=== PATIENT | female | born 1965 | race American Indian/Alaskan Native ===

== ENCOUNTER → 2024-11-05 | Outpatient (CLI) | payer BC ==
[2024-11-05 14:10] LABS: Basophils % (A) 0 %; Eosinophils # (A) 0.1 k/uL (0-0.7); Eosinophils % (A) 3 %; HCT 41.1 % (34.0-46.0); HGB 13.2 gm/dL (11.4-16.0); Hypochromasia Slight; Lymphocytes # (A) 1.3 k/uL (1.0-4.8); Lymphocytes % (A) 25 %; MCH 30.8 pg (25.0-35.0); MCHC 32.1 g/dL (31.0-37.0); MCV 95.8 fL (80.0-100.0); Mean Platelet Volume 11.8; Monocytes # (A) 0.3 k/uL (0-1.0); Monocytes % (A) 6 %; Neutrophils # (A) 3.3 k/uL (1.3-7.7); Neutrophils % (A) 65 %; RBC 4.29 m/uL (3.80-5.40); RDW 13.7 % (11.5-15.5); WBC 5.1 k/uL (3.8-10.6)
[2024-11-05 14:58] LABS: Large Platelets Present; Platelet Count 17 k/uL (150-450)
== END | disposition home or self-care (01) ==
LOC: LABWHC1 13:43
PROVIDERS: ATTEND Internal Medicine
DX: D69.3 Immune thrombocytopenic purpura (principal); D64.9 Anemia, unspecified; J45.909 Unspecified asthma, uncomplicated; F41.1 Generalized anxiety disorder
CPT/HCPCS: 36415; 85025

== ENCOUNTER 2025-01-19 22:12 | Inpatient (IN) | payer BC ==
--- NOTE | 2025-01-19 22:54 | ED ---
General Adult HPI - General Chief complaint: Recheck/Abnormal Lab/Rx Stated complaint: Abnormal Labs Time Seen by Provider: 01/19/25 22:24 Source: patient, RN notes reviewed, old records reviewed Mode of arrival: ambulatory Limitations: no limitations - History of Present Illness Initial comments: 59 yo female presenting for evaluation of low platelets. Patient states she had her platelets monitor over the past 2 months with hematology with history of ITP. Patient states that she had a blood draw performed earlier this week and her platelet level was 2. She has report easy bruising and rash on her abdomen and lower extremities. She does complain of a mild right-sided headache. No fall or trauma. No bleeding from the rectum. - Related Data Allergies Allergy/AdvReac Type Severity Reaction Status Date / Time amoxicillin Allergy Rash/Hives Verified 01/19/25 22:18 azithromycin [From Zithromax] Allergy Rash/Hives Verified 01/19/25 22:18 coconut Allergy Rash/Hives Verified 01/19/25 22:18 niacin Allergy Rash/Hives Verified 01/19/25 22:18 nitrofurantoin Allergy Unknown Verified 01/19/25 22:18 [From Macrobid] Penicillins Allergy Rash/Hives Verified 01/19/25 22:18 Review of Systems ROS Statement: Those systems with pertinent positive or pertinent negative responses have been documented in the HPI. ROS Other: All systems not noted in ROS Statement are negative. Past Medical History Additional Past Medical History / Comment(s): ITP, kidney stones History of Any Multi-Drug Resistant Organisms: None Reported Past Surgical History: Orthopedic Surgery Past Psychological History: Anxiety, Depression Smoking Status: Never smoker Past Alcohol Use History: None Reported Past Drug Use History: None Reported General Exam Limitations: no limitations General appearance: alert, in no apparent distress Head exam: Present: atraumatic, normocephalic Eye exam: Present: normal appearance, PERRL Respiratory exam: Present: normal lung sounds bilaterally. Absent: respiratory distress Cardiovascular Exam: Present: regular rate, normal rhythm GI/Abdominal exam: Present: soft. Absent: distended, tenderness, guarding Neurological exam: Present: alert, oriented X3, CN II-XII intact. Absent: motor sensory deficit Skin exam: Present: warm, rash, petechiae Course Vital Signs 01/19/25 22:13 Temperature 97.9 F Pulse Rate 94 Respiratory 18 Rate Blood Pressure 122/86 O2 Sat by Pulse 99 Oximetry - Reevaluation(s) Reevaluation #1: 01/20/25 00:[address] Duran, recommends Decadron 40 mg IV daily. Likely IVIG. Medical Decision Making - Medical Decision Making Was pt. sent in by a medical professional or institution (MYRTLE Sandoval, MARINE OPERATIONS COORDINATOR, urgent care, hospital, or skilled nursing...) When possible be specific @ -No Did you speak to anyone other than the patient for history (EMS, parent, family, police, friend...)? What history was obtained from this source @ -No Did you review nursing and triage notes (agree or disagree)? Why? @ -I reviewed and agree with nursing and triage notes Were old charts reviewed (outside hosp., previous admission, EMS record, old EKG, old radiological studies, urgent care reports/EKG's, skilled nursing records)? Report findings @ -No old charts were reviewed Differential Diagnosis: ITP, internal bleeding, intracranial hemorrhage, thrombocytopenia EKG interpreted by me (3pts min.). @ -As above X-rays interpreted by me (1pt min.). @ -None done CT interpreted by me (1pt min.). @ -CT brain negative for intracranial hemorrhage U/S interpreted by me (1pt. min.). @ -None done What testing was considered but not performed or refused? (CT, X-rays, U/S, labs)? Why? @ -None What meds were considered but not given or refused? Why? @ -None Did you discuss the management of the patient with other professionals (professionals i.e. MYRTLE Sandoval, MARINE OPERATIONS COORDINATOR, lab, RT, psych nurse, social professionals, employee benefits administrator, teacher, administrative hearing officer, case loader operator)? Give summary @ -Discussed with Dr. Duran who is familiar with the patient, [facility] who will admit Was smoking cessation discussed for >3mins.? @ -No Was critical care preformed (if so, how long)? @ -yes 35 min Were there social determinants of health that impacted care today? How? (Homelessness, low income, unemployed, alcoholism, drug addiction, transportation, low edu. Level, literacy, decrease access to med. care, fdc, rehab)? @ -No Was there de-escalation of care discussed even if they declined (Discuss DNR or withdrawal of care, Hospice)? DNR status @ -No What co-morbidities impacted this encounter? (DM, HTN, Smoking, COPD, CAD, Cancer, CVA, ARF, Chemo, Hep., AIDS, mental health diagnosis, sleep apnea, morbid obesity)? @ -ITP Was patient admitted / discharged? Hospital course, mention meds given and route, prescriptions, significant lab abnormalities, going to OR and other pertinent info. @ -[59 yo female presenting with low platelets history of ITP. Platelets today are 4. I discussed case with hematology recommends high-dose IV Decadron at this time. Patient will be admitted for monitoring and treatment. Undiagnosed new problem with uncertain prognosis? @ -No Drug Therapy requiring intensive monitoring for toxicity (Heparin, Nitro, Insulin, Cardizem)? @ -No Were any procedures done? @ -No Diagnosis/symptom? @ -Thrombocytopenia, ITP Acute, or Chronic, or Acute on Chronic? @ -[Acute Uncomplicated (without systemic symptoms) or Complicated (systemic symptoms)? @Complicated Side effects of treatment? @ -No Exacerbation, Progression, or Severe Exacerbation? @ -No Poses a threat to life or bodily function? How? (Chest pain, [place], [place], pneumonia, PE, COPD, DKA, ARF, appy, cholecystitis, CVA, Diverticulitis, Homicidal, Suicidal, threat to staff... and all critical care pts) @ -Yes, internal bleeding, intracranial hemorrhage - Lab Data Result diagrams: 01/19/25 22:56 01/19/25 22:56 Lab Results 01/19/25 01/19/25 01/19/25 Range/Units 22:56 22:56 22:56 WBC 6.75 (4.50-10.00) 10*3/uL RBC 4.20 (4.10-5.20) 10*6/uL Hgb 12.8 (12.0-15.0) g/dL Hct 38.2 (37.2-46.3) % MCV 91.0 (80.0-97.0) fL MCH 30.5 (27.0-32.0) pg MCHC 33.5 (32.0-37.0) g/dL Plt Count 4 L* (140-440) 10*3/uL Immature Gran % (Auto) 0.9 % Neutrophils % 63.9 % Lymphocytes % 25.6 % Monocytes % 6.8 % Eosinophils % 2.2 % Basophils % 0.6 % Immature Gran # 0.06 H (0.00-0.04) 10*3/uL Neutrophils # 4.31 (1.80-7.70) 10*3/uL Lymphocytes # 1.73 (0.90-5.00) 10*3/uL Monocytes # 0.46 (0.20-1.00) 10*3/uL Eosinophils # 0.15 (0.04-0.35) 10*3/uL Basophils # 0.04 (0.00-0.10) 10*3/uL PT 10.8 (10.0-12.5) sec INR 1.0 (<1.2) APTT 23.1 (22.0-30.0) sec Sodium 142 (137-145) mmol/L Potassium 3.6 (3.5-5.1) mmol/L Chloride 103 (98-107) mmol/L Carbon Dioxide 28 (22-30) mmol/L Anion Gap 11 mmol/L BUN 24 H (7-17) mg/dL Creatinine 0.93 (0.52-1.04) mg/dL Est GFR (CKD-EPI)AfAm 80 (>60 ml/min/1.73 sqM) Est GFR (CKD-EPI)NonAf 69 (>60 ml/min/1.73 sqM) Glucose 103 H (74-99) mg/dL Calcium 10.1 (8.4-10.2) mg/dL Total Bilirubin 0.6 (0.2-1.3) mg/dL AST 21 (14-36) U/L ALT 17 (4-34) U/L Alkaline Phosphatase 82 (38-126) U/L Total Protein 7.0 (6.3-8.2) g/dL Albumin 4.5 (3.5-5.0) g/dL Critical Care Time Critical Care Time: Yes Total Critical Care Time: 35 Disposition Clinical Impression: Thrombocythemia Disposition: ADMITTED IP TO THIS [facility] Condition: Stable Is patient prescribed a controlled substance at d/c from ED?: No Referrals: Alberta King MD [Primary Care Provider] - 1-2 days Time of Disposition: 00:22
[2025-01-19 23:21] LABS: Basophils # (A) 0.04 10*3/uL (0.00-0.10); Basophils % (A) 0.6 %; Eosinophils # (A) 0.15 10*3/uL (0.04-0.35); Eosinophils % (A) 2.2 %; HCT 38.2 % (37.2-46.3); HGB 12.8 g/dL (12.0-15.0); Lymphocytes # (A) 1.73 10*3/uL (0.90-5.00); Lymphocytes % (A) 25.6 %; MCH 30.5 pg (27.0-32.0); MCHC 33.5 g/dL (32.0-37.0); Monocytes # (A) 0.46 10*3/uL (0.20-1.00); Monocytes % (A) 6.8 %; Neutrophils # (A) 4.31 10*3/uL (1.80-7.70); Neutrophils % (A) 63.9 %; WBC 6.75 10*3/uL (4.50-10.00)
[2025-01-19 23:22] LABS: ALT 17 U/L (4-34); AST 21 U/L (14-36); African American GFR (CKD) 80 (>60 ml/min/1.73 sqM); Albumin 4.5 g/dL (3.5-5.0); Alkaline Phosphatase 82 U/L (38-126); Anion Gap 11 mmol/L; Blood Urea Nitrogen 24 mg/dL (7-17); Calcium 10.1 mg/dL (8.4-10.2); Carbon Dioxide 28 mmol/L (22-30); Chloride 103 mmol/L (98-107); Glucose 103 mg/dL (74-99); Non-African American GFR(CKD) 69 (>60 ml/min/1.73 sqM); Potassium 3.6 mmol/L (3.5-5.1); Sodium 142 mmol/L (137-145); Total Bilirubin 0.6 mg/dL (0.2-1.3)
[2025-01-19 23:24] LABS: Partial Thromboplastin Time 23.1 sec (22.0-30.0); Prothrombin Time 10.8 sec (10.0-12.5)
[2025-01-19 23:39] LABS: Platelet Count 4 10*3/uL (140-440)
[2025-01-20] MEDS: DEXAMETHASONE SOD PHOSPHATE 10 MG/ML 1 ML VIAL IV SCH
[2025-01-20] MEDS ORDERED: NALOXONE 0.4 MG/ML 1 ML VIAL IV PRN (00:15)
--- NOTE | 2025-01-20 00:30 | CT ---
EXAM: CT Head Without Intravenous Contrast CLINICAL HISTORY: ITS.REASON CT Reason: ALCANTAR, Thrombocytopenia TECHNIQUE: Axial computed tomography images of the head/brain without intravenous contrast. CTDI is 49.2 mGy and DLP is 1200.4 mGy-cm. This CT exam was performed using one or more of the following dose reduction techniques: automated exposure control, adjustment of the mA and/or kV according to patient size, and/or use of iterative reconstruction technique. COMPARISON: No relevant prior studies available. FINDINGS: No acute intracranial hemorrhage. No midline shift or mass effect. The territorial ewing-white matter differentiation is maintained throughout. The ventricles and sulci are commensurate with age. The visualized orbits appear grossly unremarkable. The calvarium is intact. The visualized paranasal sinuses and mastoid air cells are grossly clear. IMPRESSION: No acute intracranial hemorrhage, midline shift, or mass effect.
[2025-01-20] MEDS: SODIUM CHLORIDE 0.9% 1,000 ML IV SCH (00:46)
[2025-01-20] MEDS: ACETAMINOPHEN TAB 325 MG TAB PO PRN (04:16)
[2025-01-20 07:35] LABS: Basophils # (A) 0.01 10*3/uL (0.00-0.10); Basophils % (A) 0.3 %; HCT 38.2 % (37.2-46.3); HGB 12.6 g/dL (12.0-15.0); Lymphocytes % (A) 16.9 %; MCH 30.5 pg (27.0-32.0); MCV 92.5 fL (80.0-97.0); Monocytes # (A) 0.06 10*3/uL (0.20-1.00); Monocytes % (A) 1.7 %; Neutrophils # (A) 2.87 10*3/uL (1.80-7.70); Neutrophils % (A) 81.1 %; RBC 4.13 10*6/uL (4.10-5.20); RDW 12.9 % (11.5-14.5); WBC 3.54 10*3/uL (4.50-10.00)
[2025-01-20 07:48] LABS: ALT 18 U/L (4-34); AST 20 U/L (14-36); African American GFR (CKD) >90 (>60 ml/min/1.73 sqM); Albumin 4.3 g/dL (3.5-5.0); Alkaline Phosphatase 74 U/L (38-126); Anion Gap 8 mmol/L; Blood Urea Nitrogen 19 mg/dL (7-17); Calcium 9.6 mg/dL (8.4-10.2); Carbon Dioxide 25 mmol/L (22-30); Chloride 107 mmol/L (98-107); Glucose 142 mg/dL (74-99); Non-African American GFR(CKD) >90 (>60 ml/min/1.73 sqM); Potassium 3.9 mmol/L (3.5-5.1); Sodium 140 mmol/L (137-145); Total Bilirubin 0.5 mg/dL (0.2-1.3); Total Protein 6.8 g/dL (6.3-8.2)
[2025-01-20 07:53] LABS: Platelet Count 3 10*3/uL (140-440)
[2025-01-20] MEDS: PANTOPRAZOLE 40 MG TABLET PO SCH (10:04)
[2025-01-20] MEDS: ACETAMINOPHEN TAB 325 MG TAB PO SCH (12:30)
[2025-01-20] MEDS: diphenhydrAMINE 25 MG CAP PO SCH (12:30)
[2025-01-20] MEDS: methylPREDNISolone SOD SUCCI 125 MG/2 ML VIAL IV SCH (12:33)
[2025-01-20] MEDS: FAMOTIDINE 20 MG/2 ML VIAL IV SCH (12:36)
[2025-01-20] MEDS: IMMUNE GLOBULIN (GAMMAGARD) 30 GM in EMPTY BAG 1 BAG IV NR ×2 (13:26→16:23)
--- NOTE | 2025-01-20 18:00 | P.CONS ---
History of Present Illness - Reason for Consult Consult date: 01/20/25 ITP Requesting physician: Alberto Skelton - Chief Complaint thrombocytopenia - History of Present Illness Ms. Manning is a 58-year-old woman with a PMH of ITP treated with steroids, IVIG, and Nplate who was referred to Dr. Yulissa Duran for a second opinion. She was found to have ITP on routine blood work in November 2022. At that time, she was started on oral prednisone from November to February of 2023. She did require hospitalization at [facility] from 06/02/2023 through 06/05/2023 due to profound thrombocytopenia with platelets of 6000. She received IVIG and 2 units of platelets at that time with subsequent increase in platelets to 85,000. She did note having significant myalgias and pain with IVIG. Nplate was eventually started in August 2023, which she was maintained on until 02/28/2024, last took steroids in March 2024. Since then, her platelets have been normal. She has undergone autoimmune workup through her PCP and has been referred to [facility]. No ETOH Hx or bone marrow disorder. She had notable decrease in her platelet counts starting in September 2024. She completed pulsed dose steroids with some improvement in thrombocytopenia in October. She is being worked up by Rheumatology for possible autoimmune disease, there was also concerns about antiphospholipid antibody syndrome, plans were to repeat the labs for comp formation within a few months. Patient did refuse anticoagulation at that time. She is currently admitted with significantly low platelet counts of 3000. Patient states that she has been intermittently tasting blood in her mouth, noted increased bruising, hematoma on the right calf just from laying her leg on the edge of the couch. She is also noted to have petechiae on her hands and feet as well as oral blood blisters. She denies any blood in the urine or the stool, no recent illnesses, unintentional weight loss. Review of Systems 10 point ROS is neg except as stated in HPI Past Medical History Past Medical History: Blood Disorder Additional Past Medical History / Comment(s): ITP, kidney stones History of Any Multi-Drug Resistant Organisms: None Reported Past Surgical History: Orthopedic Surgery Past Psychological History: Anxiety, Depression Smoking Status: Never smoker Past Alcohol Use History: None Reported Past Drug Use History: None Reported - Past Family History Mother Family Medical History: Congestive Heart Failure (CHF), Coronary Artery Disease (CAD) Father Family Medical History: Congestive Heart Failure (CHF), Coronary Artery Disease (CAD), Diabetes Mellitus, Dialysis Medications and Allergies Home Medications Medication Instructions Recorded Confirmed Type ALPRAZolam [Xanax] 0.5 mg PO Q6H 01/20/25 01/20/25 History Aspirin EC [Ecotrin Low Dose] 81 mg PO DAILY 01/20/25 01/20/25 History Baclofen 10 - 20 mg PO TID PRN 01/20/25 01/20/25 History Bumetanide [BUMEX] 2 mg PO DAILY 01/20/25 01/20/25 History Gabapentin [Neurontin] 300 mg PO BID 01/20/25 01/20/25 History Montelukast [Singulair] 10 mg PO DAILY 01/20/25 01/20/25 History Oxybutynin Chloride [oxyBUTYnin 10 mg PO DAILY 01/20/25 01/20/25 History chloride ER] Pantoprazole [Protonix] 40 mg PO DAILY 01/20/25 01/20/25 History Potassium Chloride ER [K-Dur 20] 40 meq PO DAILY 01/20/25 01/20/25 History Potassium Citrate [Urocit-K] 20 meq PO BID 01/20/25 01/20/25 History Rimegepant Sulfate [Nurtec Odt] 75 mg PO Q48H PRN 01/20/25 01/20/25 History Rizatriptan Benzoate 10 mg PO DAILY PRN 01/20/25 01/20/25 History Tamsulosin [Flomax] 0.4 mg PO DAILY 01/20/25 01/20/25 History Tirzepatide [Zepbound] 5 mg SQ SA 01/20/25 01/20/25 History allopurinoL [Zyloprim] 300 mg PO DAILY 01/20/25 01/20/25 History buPROPion XL [Wellbutrin XL] 300 mg PO DAILY 01/20/25 01/20/25 History hydroCHLOROthiazide [Hydrodiuril] 25 mg PO DAILY 01/20/25 01/20/25 History ondansetron HCL [Zofran] 8 mg PO Q6H PRN 01/20/25 01/20/25 History oxyCODONE-APAP 10-325MG [Percocet 1 tab PO Q8H PRN 01/20/25 01/20/25 History 10-325 mg] Allergies Allergy/AdvReac Type Severity Reaction Status Date / Time amoxicillin Allergy Rash/Hives Verified 01/20/25 09:55 azithromycin [From Zithromax] Allergy Rash/Hives Verified 01/20/25 09:55 coconut Allergy Rash/Hives Verified 01/20/25 09:55 niacin Allergy Rash/Hives Verified 01/20/25 09:55 nitrofurantoin Allergy Unknown Verified 01/20/25 09:55 [From Macrobid] Penicillins Allergy Rash/Hives Verified 01/20/25 09:55 Physical Exam Vitals: Vital Signs Temp Pulse Resp BP Pulse Ox 01/20/25 09:57 80 16 129/83 98 01/20/25 07:12 70 18 120/80 98 01/20/25 02:43 71 18 121/78 97 01/19/25 22:13 97.9 F 94 18 122/86 99 Intake and Output 01/19/25 01/20/25 01/20/25 22:59 06:59 14:59 Other: Weight 102.058 kg - Constitutional General appearance: cooperative, no acute distress, obese - EENT wet purpura Eyes: anicteric sclerae, EOMI ENT: hearing grossly normal - Neck Neck: no lymphadenopathy - Respiratory Respiratory: bilateral: CTA - Cardiovascular Rhythm: regular Heart sounds: normal: S1, S2 Abnormal Heart Sounds: no systolic murmur, no diastolic murmur, no rub, no S3 Gallop, no S4 Gallop, no click, no other leg Peripheral Edema: bilateral: None - Gastrointestinal General gastrointestinal: no absent bowel sounds, no decreased bowel sounds, no distended, no hepatomegaly, no hyperactive bowel sounds, normal bowel sounds, no organomegaly, no rigid, no scaphoid, soft, no splenomegaly, no tenderness, no umbilical hernia, no ventral hernia - Integumentary scattered, mild petechiae, extremity bruising moderate - Neurologic Neurologic: CNII-XII intact - Musculoskeletal Musculoskeletal: strength equal bilaterally - Psychiatric Psychiatric: A&O x's 3, appropriate affect, intact judgment & insight Results CBC & Chem 7: 01/20/25 07:07 01/20/25 07:07 Labs: Abnormal Lab Results - Last 24 Hours (Table) 01/19/25 01/19/25 01/20/25 Range/Units 22:56 22:56 07:07 WBC 3.54 L (4.50-10.00) 10*3/uL Plt Count 4 L* 3 L* (140-440) 10*3/uL Immature Gran # 0.06 H (0.00-0.04) 10*3/uL Lymphocytes # 0.60 L (0.90-5.00) 10*3/uL Monocytes # 0.06 L (0.20-1.00) 10*3/uL Eosinophils # 0.00 L (0.04-0.35) 10*3/uL BUN 24 H (7-17) mg/dL Glucose 103 H (74-99) mg/dL 01/20/25 Range/Units 07:07 WBC (4.50-10.00) 10*3/uL Plt Count (140-440) 10*3/uL Immature Gran # (0.00-0.04) 10*3/uL Lymphocytes # (0.90-5.00) 10*3/uL Monocytes # (0.20-1.00) 10*3/uL Eosinophils # (0.04-0.35) 10*3/uL BUN 19 H (7-17) mg/dL Glucose 142 H (74-99) mg/dL CT Scan - head: report reviewed Assessment and Plan (1) Chronic ITP (idiopathic thrombocytopenia) Current Visit: Yes Status: Acute Priority: High Code(s): D69.3 - IMMUNE THROMBOCYTOPENIC PURPURA SNOMED Code(s): 54932245 Plan: ITP - Diagnosis and treatment as stated in HPI. - Patient did have a period of time where she did not require any medications/treatment for her ITP. - Plan at this time is to administer IVIG. Discussed with PharmD. Premedications ordered as patient did have a mild/moderate serum sickness after receiving IVIG in the past. - CBC daily. -Follow-up planned with [facility], plans to initiate new oral therapy Doctor attests: I performed a history and physical examination of this patient, developed impression and plan of care. Discussed with dictator. I agree with dictators note, documented as a scribe.
[2025-01-20 18:16] LABS: Appearance,Urine Clear (Clear); Bacteria,Urine Many /hpf; Bilirubin,Urine Negative (Negative); Blood,Urine Negative (Negative); Color,Urine Light Yellow; Glucose,Urine (UA) Negative (Negative); Ketones,Urine 1+ (Negative); Leukocyte Esterase,Urine Large (Negative); Mucus,Urine Rare /hpf; Nitrite,Urine Positive (Negative); Protein,Urine Negative (Negative); RBC,Urine 2 /hpf (0-5); Specific Gravity,Urine 1.019 (1.001-1.035); Squamous Epithelial Cell,Urine <1 /hpf (0-4); Urobilinogen,Urine <2.0 mg/dL (<2.0); WBC,Urine 8 /hpf (0-5)
[2025-01-20] MEDS: IMMUNE GLOBULIN (GAMMAGARD) 10 GM in EMPTY BAG 1 BAG IV NR (18:41)
[2025-01-20] MEDS ORDERED: NON FORMULARY DRUG (Rimegepant Sulfate [Nurtec Odt] 75 MG Tablet) PO PRN ×2 (19:21→20:15)
[2025-01-20] MEDS ORDERED: RIZATRIPTAN BENZOATE 10 MG PO PRN (19:21)
[2025-01-20] MEDS ORDERED: DEXTROSE 50% SYRINGE 50 ML IVP PRN ×2 (19:27)
[2025-01-20 19:59] LABS: Glucose,Whole Blood 153 mg/dL (70-110)
[2025-01-20] MEDS: INSULIN LISPRO (HumaLOG) 100 UNIT/ML 10 mL VL SQ SCH (20:29)
[2025-01-20] MEDS: BACLOFEN 10 MG TAB PO PRN (20:33)
[2025-01-20] MEDS: oxyCODONE-APAP 10-325MG 1 EACH TAB PO PRN (20:33)
[2025-01-20] MEDS: GABAPENTIN 300 MG CAP PO SCH (20:33)
[2025-01-20] MEDS: ALPRAZolam 0.5 MG TAB PO SCH (20:34)
[2025-01-20] MEDS: POTASSIUM CITRATE 10 MEQ TABLET.ER PO SCH (21:35)
[2025-01-20] MEDS: ONDANSETRON ODT 8 MG TAB.RAPDIS PO PRN (21:35)
[2025-01-20] MEDS: RIZATRIPTAN BENZOATE 10 MG PO PRN (21:37)
--- NOTE | 2025-01-20 23:32 | P.HPIM ---
History of Present Illness H&P Date: 01/20/25 Chief Complaint: Low platelet count Patient is a 59-year-old female with a known history of ITP, renal stones, anxiety/depression was sent to ER due to low platelet count. Patient started having petechial rash over the legs and abdomen for the last couple of days. She was also complaining of mild right-sided headache. Denied any hematemesis or melena. No hemoptysis. Patient does have a history of ITP and is monitoring platelet count over the last 2 months with her hematology. She had blood drawn earlier this week and her platelet count was 2. Denied any fever or chills. No chest pain or shortness of breath. CT head showed no acute intracranial hemorrhage, midline shift or mass effect. Laboratory showed WBC 6.75, hemoglobin 12.8 and platelets 4 Sodium 142 potassium 3.6 chloride 103 bicarb is 28 BUN 24 and creatinine 0.93 and blood sugar 103 liver enzymes are not elevated Review of Systems Constitutional: Patient denies any fever or chills . No generalized weakness or weight loss. Abdomen: Patient denied nausea vomiting and diarrhea and abdominal pain. Cardiovascular: Patient denies any chest pain or short of breath no p alpitations. Respiratory: patient denied any cough or sputum production. No shortness of breath Neurologic: Patient denied any numbness or tingling. no headache. Musculoskeletal: Patient denies any complaints of joint swelling or deformity. Skin: Negative Psychiatric: Negative Endocrine: No heat or cold intolerance. No recent weight gain. Genitourinary: No dysuria or hematuria. All other 14 point ROS negative except the above Past Medical History Additional Past Medical History / Comment(s): ITP, kidney stones History of Any Multi-Drug Resistant Organisms: None Reported Past Surgical History: Orthopedic Surgery Past Psychological History: Anxiety, Depression Smoking Status: Never smoker Past Alcohol Use History: None Reported Past Drug Use History: None Reported - Past Family History Mother Family Medical History: Congestive Heart Failure (CHF), Coronary Artery Disease (CAD) Father Family Medical History: Congestive Heart Failure (CHF), Coronary Artery Disease (CAD), Diabetes Mellitus, Dialysis Medications and Allergies Home Medications Medication Instructions Recorded Confirmed Type ALPRAZolam [Xanax] 0.5 mg PO Q6H 01/20/25 01/20/25 History Aspirin EC [Ecotrin Low Dose] 81 mg PO DAILY 01/20/25 01/20/25 History Baclofen 10 - 20 mg PO TID PRN 01/20/25 01/20/25 History Bumetanide [BUMEX] 2 mg PO DAILY 01/20/25 01/20/25 History Gabapentin [Neurontin] 300 mg PO BID 01/20/25 01/20/25 History Montelukast [Singulair] 10 mg PO DAILY 01/20/25 01/20/25 History Oxybutynin Chloride [oxyBUTYnin 10 mg PO DAILY 01/20/25 01/20/25 History chloride ER] Pantoprazole [Protonix] 40 mg PO DAILY 01/20/25 01/20/25 History Potassium Chloride ER [K-Dur 20] 40 meq PO DAILY 01/20/25 01/20/25 History Potassium Citrate [Urocit-K] 20 meq PO BID 01/20/25 01/20/25 History Rimegepant Sulfate [Nurtec Odt] 75 mg PO Q48H PRN 01/20/25 01/20/25 History Rizatriptan Benzoate 10 mg PO DAILY PRN 01/20/25 01/20/25 History Tamsulosin [Flomax] 0.4 mg PO DAILY 01/20/25 01/20/25 History Tirzepatide [Zepbound] 5 mg SQ SA 01/20/25 01/20/25 History allopurinoL [Zyloprim] 300 mg PO DAILY 01/20/25 01/20/25 History buPROPion XL [Wellbutrin XL] 300 mg PO DAILY 01/20/25 01/20/25 History hydroCHLOROthiazide [Hydrodiuril] 25 mg PO DAILY 01/20/25 01/20/25 History ondansetron HCL [Zofran] 8 mg PO Q6H PRN 01/20/25 01/20/25 History oxyCODONE-APAP 10-325MG [Percocet 1 tab PO Q8H PRN 01/20/25 01/20/25 History 10-325 mg] Allergies Allergy/AdvReac Type Severity Reaction Status Date / Time amoxicillin Allergy Rash/Hives Verified 01/20/25 09:55 azithromycin [From Zithromax] Allergy Rash/Hives Verified 01/20/25 09:55 coconut Allergy Rash/Hives Verified 01/20/25 09:55 niacin Allergy Rash/Hives Verified 01/20/25 09:55 nitrofurantoin Allergy Unknown Verified 01/20/25 09:55 [From Macrobid] Penicillins Allergy Rash/Hives Verified 01/20/25 09:55 Physical Exam Vitals: Vital Signs Temp Pulse Resp BP Pulse Ox 01/20/25 09:57 80 16 129/83 98 01/20/25 07:12 70 18 120/80 98 01/20/25 02:43 71 18 121/78 97 01/19/25 22:13 97.9 F 94 18 122/86 99 Intake and Output 01/19/25 01/20/25 01/20/25 22:59 06:59 14:59 Other: Weight 102.058 kg PHYSICAL EXAMINATION: Patient is lying in the bed comfortably, no acute distress, awake alert and oriented.. HEENT: Normocephalic. Neck is supple. Pupils reactive. Nostrils clear. Oral cavity is moist. Neck reveals no JVD, carotid bruits, or thyromegaly. CHEST EXAMINATION: Trachea is central. Symmetrical expansion. Lung rubin clear to auscultation and percussion. CARDIAC: Normal S1, S2 with no gallops. No murmurs ABDOMEN: Soft. Bowel sounds normal. No organomegaly. No abdominal bruits. Extremities: reveal no edema. No clubbing or cyanosis Neurologically awake, alert, oriented x3 with well-coordinated movements. No f ocal deficits noted Skin: Petechial rash over the bilateral lower extremity and abdomen Psychiatric: Coperative. Nonsuicidal Musculoskeletal: No joint swelling or deformity. Normal range of motion. Results CBC & Chem 7: 01/20/25 07:07 01/20/25 07:07 Labs: Abnormal Lab Results - Last 24 Hours (Table) 01/19/25 01/19/25 01/20/25 Range/Units 22:56 22:56 07:07 WBC 3.54 L (4.50-10.00) 10*3/uL Plt Count 4 L* 3 L* (140-440) 10*3/uL Immature Gran # 0.06 H (0.00-0.04) 10*3/uL Lymphocytes # 0.60 L (0.90-5.00) 10*3/uL Monocytes # 0.06 L (0.20-1.00) 10*3/uL Eosinophils # 0.00 L (0.04-0.35) 10*3/uL BUN 24 H (7-17) mg/dL Glucose 103 H (74-99) mg/dL / Range/Units 07:07 WBC (4.50-10.00) 10*3/uL Plt Count (140-440) 10*3/uL Immature Gran # (0.00-0.04) 10*3/uL Lymphocytes # (0.90-5.00) 10*3/uL Monocytes # (0.20-1.00) 10*3/uL Eosinophils # (0.04-0.35) 10*3/uL BUN 19 H (7-17) mg/dL Glucose 142 H (74-99) mg/dL Thrombosis Risk Factor Assmnt - DVT/VTE Prophylaxis DVT/VTE Prophylaxis: Mechanical Prophylaxis ordered Assessment and Plan Assessment: Severe thrombocytopenia History of ITP History of renal stones Anxiety/depression GI prophylaxis and PPI No DVT prophylaxis due to thrombocytopenia Plan: Patient will be current on IV hydration with normal saline. Patient was given IV Solu-Medrol 60 mg every 24 hours. Oncology is on board and is planning for IV IgG. Continue to monitor closely. Time with Patient: Greater than 30
[2025-01-21 07:37] LABS: Basophils # (A) 0.01 10*3/uL (0.00-0.10); Basophils % (A) 0.2 %; Eosinophils # (A) 0.01 10*3/uL (0.04-0.35); Eosinophils % (A) 0.2 %; HCT 37.4 % (37.2-46.3); Lymphocytes # (A) 1.25 10*3/uL (0.90-5.00); Lymphocytes % (A) 18.8 %; MCH 30.8 pg (27.0-32.0); MCHC 32.1 g/dL (32.0-37.0); MCV 95.9 fL (80.0-97.0); Monocytes # (A) 0.54 10*3/uL (0.20-1.00); Monocytes % (A) 8.1 %; Neutrophils # (A) 4.82 10*3/uL (1.80-7.70); Neutrophils % (A) 72.4 %; RDW 13.3 % (11.5-14.5); WBC 6.65 10*3/uL (4.50-10.00)
[2025-01-21 07:59] LABS: African American GFR (CKD) >90 (>60 ml/min/1.73 sqM); Anion Gap 8 mmol/L; Blood Urea Nitrogen 17 mg/dL (7-17); Calcium 9.6 mg/dL (8.4-10.2); Carbon Dioxide 22 mmol/L (22-30); Chloride 111 mmol/L (98-107); Glucose 89 mg/dL (74-99); Non-African American GFR(CKD) >90 (>60 ml/min/1.73 sqM); Potassium 3.8 mmol/L (3.5-5.1); Sodium 141 mmol/L (137-145)
[2025-01-21 08:34] LABS: Platelet Count 18 10*3/uL (140-440)
[2025-01-21 08:44] LABS: Large Platelets Present
[2025-01-21] MEDS ORDERED: PANTOPRAZOLE 40 MG TABLET PO SCH (09:00)
[2025-01-21] MEDS: TAMSULOSIN 0.4 MG CAP.ER.24H PO SCH (09:12)
[2025-01-21] MEDS: MONTELUKAST 10 MG TAB PO SCH (09:12)
[2025-01-21] MEDS: hydroCHLOROthiazide 25 MG TAB PO SCH (09:13)
[2025-01-21] MEDS: POTASSIUM CHLORIDE ER 20 MEQ TAB.ER PO SCH (09:13)
[2025-01-21] MEDS: OXYBUTYNIN 10 MG TAB.ER.24 PO SCH (09:13)
[2025-01-21] MEDS: BUMETANIDE 1 MG TAB PO SCH (09:14)
[2025-01-21] MEDS: allopurinoL 300 MG TAB PO SCH (09:14)
[2025-01-21] MEDS: ASPIRIN 81 MG PO SCH (09:14)
[2025-01-21] MEDS: buPROPion XL 300 MG TAB.ER.24H PO SCH (09:14)
[2025-01-21 12:32] LABS: Glucose,Whole Blood 154 mg/dL (70-110)
[2025-01-21] MEDS: IMMUNE GLOBULIN (GAMMAGARD) 30 GM in EMPTY BAG 1 BAG IV NR ×2 (12:54→15:06)
--- NOTE | 2025-01-21 15:18 | P.PN ---
Subjective Progress Note Date: 01/21/25 Principal diagnosis: ITP In f/u today pt reports ALCANTAR after IVIG, she used oxy and baclophen and that helped. No fevers, N,V, her petechiae is improving. Denies any bleeding. Objective - Vital Signs Vital signs: Vital Signs Temp 98 F 01/21/25 12:09 Pulse 79 01/21/25 12:09 Resp 14 01/21/25 12:09 BP 123/75 01/21/25 12:09 Pulse Ox 99 01/21/25 12:09 FiO2 Intake & Output 01/20/25 01/21/25 01/21/25 18:59 06:59 18:59 Intake Total 823.333 540 480.667 Output Total 700 Balance 823.333 -160 480.667 Weight 102.058 kg 99.1 kg Intake: Intake, IV Titration 283.333 126.667 Amount Immune Globulin ( 283.333 Gammagard) 30 gm In Empty Bag 1 bag @ Per Protocol IV .Q0M NR Rx#:[id number] Immune Globulin ( 126.667 Gammagard) 30 gm In Empty Bag 1 bag @ Per Protocol IV .Q0M NR Rx#:[id number] Oral 540 540 354 Output: Urine 700 Other: Voiding Method Toilet - Constitutional General appearance: Present: cooperative, no acute distress, obese - EENT Eyes: Present: anicteric sclerae, EOMI ENT: Present: hearing grossly normal - Respiratory Details: resp unlabored - Cardiovascular Details: skin warm to touch - Peripheral edema leg Peripheral Edema: bilateral: None - Integumentary Integumentary Comment(s): less petechiae on legs - Neurologic Neurologic: Present: CNII-XII intact - Musculoskeletal Musculoskeletal: Present: strength equal bilaterally - Psychiatric Psychiatric: Present: A&O x's 3, appropriate affect, intact judgment & insight - Labs CBC & Chem 7: 01/21/25 06:53 01/21/25 06:53 Labs: Abnormal Lab Results - Last 24 Hours (Table) 01/20/25 01/20/25 01/21/25 Range/Units 17:48 19:57 06:53 RBC 3.90 L (4.10-5.20) 10*6/uL Plt Count 18 L* D (140-440) 10*3/uL Eosinophils # 0.01 L (0.04-0.35) 10*3/uL Immature Plt Fraction 24.0 H (1.1-6.1) % Chloride (98-107) mmol/L POC Glucose (mg/dL) 153 H (70-110) mg/dL Urine Ketones 1+ H (Negative) Urine Nitrite Positive H (Negative) Ur Leukocyte Esterase Large H (Negative) Urine WBC 8 H (0-5) /hpf Urine Bacteria Many H (None) /hpf Urine Mucus Rare H (None) /hpf 01/21/25 01/21/25 Range/Units 06:53 12:30 RBC (4.10-5.20) 10*6/uL Plt Count (140-440) 10*3/uL Eosinophils # (0.04-0.35) 10*3/uL Immature Plt Fraction (1.1-6.1) % Chloride 111 H (98-107) mmol/L POC Glucose (mg/dL) 154 H (70-110) mg/dL Urine Ketones (Negative) Urine Nitrite (Negative) Ur Leukocyte Esterase (Negative) Urine WBC (0-5) /hpf Urine Bacteria (None) /hpf Urine Mucus (None) /hpf Assessment and Plan (1) Chronic ITP (idiopathic thrombocytopenia) Current Visit: Yes Status: Acute Priority: High Code(s): D69.3 - IMMUNE THROMBOCYTOPENIC PURPURA SNOMED Code(s): 89104062 Plan: ITP - Diagnosis and treatment as stated in consult. - Patient did have a period of time where she did not require any medicat ions/treatment for her ITP. - Plan at this time is to administer IVIG. 2nd dose today. Premedications did help prevent side effects of infusion - Orders being sent for weekly CBC monitoring in [place] -Follow-up planned with Social Work Professor, plans to initiate new oral therapy As long as platelets are stable/greater than 10,000 in the a.m., patient is okay for discharge. Doctor attests: I performed a history and physical examination of this patient, developed impression and plan of care. Discussed with dictator. I agree with dictators note, documented as a scribe.
[2025-01-21] MEDS: IMMUNE GLOBULIN (GAMMAGARD) 10 GM in EMPTY BAG 1 BAG IV NR (16:27)
[2025-01-21] MEDS: DOCUSATE 100 MG CAP PO PRN (21:36)
[2025-01-22 08:14] LABS: HCT 33.8 % (37.2-46.3); HGB 11.2 g/dL (12.0-15.0); Immature Platelet Fraction 18.3 % (1.1-6.1); MCH 31.6 pg (27.0-32.0); MCHC 33.1 g/dL (32.0-37.0); MCV 95.5 fL (80.0-97.0); Mean Platelet Volume 14.1 fL (9.5-12.2); RBC 3.54 10*6/uL (4.10-5.20); RDW 13.3 % (11.5-14.5); WBC 7.73 10*3/uL (4.50-10.00)
[2025-01-22 08:16] LABS: Platelet Count 47 10*3/uL (140-440)
--- NOTE | 2025-01-22 13:00 | CDI ---
Date: 01/22/2025 From: Liza [email or web address] Email: [email or web address] Admit Date: 01/20/2025 12:15:00 AM Patient Name: Yani Manning Visit Number: [id number] Discharge Date: N/A ATTENTION: The Clinical Documentation Specialists (CDI) and [facility] Coding Staff appreciate your assistance in clarifying documentation. Please respond to the clarification below the line at the bottom and electronically sign. The CDI & [facility] Coding staff will review the response and follow-up if needed. Please note: Queries are made part of the Legal Health Record. If you have any questions, please contact the author of this message via ITS. Dr. Ricarda Diaz, Your patient is receiving the following: Rocephin 1g IVPB Every 24 Hours. Please clarify what condition/diagnosis is being treated. History/Risk Factors: 59-year-old female presented to [facility] ED for evaluation due to a reported low platelet count. PMH: Renal stones, chronic idiopathic thrombocytopenia, anxiety, depression Clinical indicators: Documentation Location: Electronic Medical Record Urinalysis (Collected 01/20/2025): Positive Nitrite, Large Leukocyte Esterase, Many Bacteria, Rare Mucus Urine Culture (Collected 01/20/2025): >100,000 CFU/mL Gram Negative Bacilli (Preliminary Result) H&P Report (01/20/2025): No dysuria or hematuria Treatment: Rocephin 1g IVPB Every 24 Hours (First Dose Received 01/21/2025) What diagnosis are you treating with IV Rocephin? [ x ] Acute urinary tract infection, present on admission [ ] No additional diagnosis/Empiric treatment only [ ] Other, please specify [ ] Unable to determine MTDD
--- NOTE | 2025-01-22 13:12 | CT ---
EXAMINATION TYPE: CT brain cspine wo con CT DLP: 1528.5 mGycm, Automated exposure control for dose reduction was used. DATE OF EXAM: 01/22/2025 1:02 PM COMPARISON: CT brain 01/19/2025. CLINICAL INDICATION:Female, 59 years old with history of Fall, head and neck please; Fall, struck Rt side of head on door jam, pain TECHNIQUE: Brain: Multiple axial CT images of the brain were obtained without IV contrast. Cspine: Axial CT images from the skull base to the inferior aspect of T2 we obtained without intraven ous contrast. Coronal and sagittal reformatted images were also reviewed. FINDINGS: Brain: Extra-axial spaces: No abnormal extra-axial fluid collections. Ventricular system: Within normal limits Cerebral parenchyma: No acute intraparenchymal hemorrhage or mass effect. The ewing-white junction is well differentiated. Cerebellum: Unremarkable. Mass effect: No evidence of midline shift. Intracranial vasculature: unremarkable Soft tissues: Normal. Calvarium/osseous structures: No depressed skull fracture. Paranasal sinuses and mastoid air cells: Clear. Cerumen within the right external auditory canal. Visualized orbits: Orbital contents are intact. Cervical spine: Fracture: None. Osseous structures: Multilevel degenerative disc disease changes with endplate spurring and disc oste ophyte complex's. Vertebral alignment: Within normal limits. Spinal canal/Neural Foramina: Disc osteophyte complexes at C5-C6 and C6-C7 with at least mild spinal canal stenosis. Facet joint uncovertebral joint arthropathy scattered throughout the cervical spine w ith varying degrees of neural foraminal stenosis. Neck soft tissues: Prevertebral soft tissues are within normal limits. Other: The airway is patent. The lung apices are clear. IMPRESSION: 1. No acute intracranial process. 2. No evidence of cervical spine fracture. 3. Mild multilevel degenerative disc disease. [facility], , 01/22/2025 1:10 PM
--- NOTE | 2025-01-22 13:36 | XR ---
EXAMINATION TYPE: XR knee complete LT DATE OF EXAM: 01/22/2025 1:09 PM COMPARISON: None CLINICAL INDICATION: Female, 59 years old with history of Fall;, pain TECHNIQUE: XR knee complete LT 3 views submitted. FINDINGS: No evidence of any acute osseous pathology or soft tissue swelling. Tricompartmental oste ophyte formation involving the femoral condyles, tibial plateau and patella. Mild joint space narrowi ng. IMPRESSION: 1. No acute osseous pathology. 2. Mild tricompartmental osteoarthritic changes. [facility], , 01/22/2025 1:33 PM
--- NOTE | 2025-01-22 13:37 | XR ---
EXAMINATION TYPE: XR foot complete RT DATE OF EXAM: 01/22/2025 1:09 PM COMPARISON: None CLINICAL INDICATION: Female, 59 years old with history of Fall, pain TECHNIQUE: XR foot complete RT examined in the AP, oblique, and lateral projections. FINDINGS: No evidence of any acute osseous pathology. Multifocal degeneration changes throughout the joints of the foot with osteophyte formation and joint space narrowing. Accessory ossicles are present. Calc aneal plantar spurring is present. IMPRESSION: 1. No evidence of acute fracture. 2. Multifocal degeneration changes throughout the joints of the foot. [facility], , 01/22/2025 1:35 PM
[2025-01-22 15:49] VITALS: BP 123/75; PULSE 78; RESP 18; TEMP 98.1
--- NOTE | 2025-01-22 20:28 | P.PN ---
Subjective Progress Note Date: 01/22/25 No acute events overnight. Plts improved today to 47,000. No reported episodes of acute bleeding. Plan for discharge today Objective - Vital Signs Vital signs: Vital Signs Temp 97.9 F 01/22/25 07:57 Pulse 99 01/22/25 11:26 Resp 16 01/22/25 11:26 BP 121/79 01/22/25 11:26 Pulse Ox 98 01/22/25 11:26 FiO2 Intake & Output 01/21/25 01/22/25 01/22/25 18:59 06:59 18:59 Intake Total 702.667 60 480 Balance 702.667 60 480 Weight 99.3 kg Intake: IV 10 0.9 10 Intake, IV Titration 126.667 50 Amount Immune Globulin ( 126.667 Gammagard) 30 gm In Empty Bag 1 bag @ Per Protocol IV .Q0M NR Rx#:[id number] cefTRIAXone 1 gm In 50 Sodium Chloride 0.9% 50 ml @ 100 mls/hr IVPB Q24H [facility] Rx#:[id number] Oral 576 480 Other: Voiding Method Toilet Toilet Toilet # Voids 3 1 - Constitutional General appearance: Present: average body habitus, no acute distress - EENT Eyes: Present: anicteric sclerae, EOMI ENT: Present: hearing grossly normal - Respiratory Details: breathing is even and unlabored - Cardiovascular Details: skin warm and dry - Integumentary Integumentary: Absent: cyanotic - Neurologic Neurologic: Present: CNII-XII intact - Musculoskeletal Musculoskeletal: Present: strength equal bilaterally - Psychiatric Psychiatric: Present: A&O x's 3 - Labs CBC & Chem 7: 01/22/25 07:16 01/21/25 06:53 Labs: Abnormal Lab Results - Last 24 Hours (Table) 01/22/25 Range/Units 07:16 RBC 3.54 L (4.10-5.20) 10*6/uL Hgb 11.2 L (12.0-15.0) g/dL Hct 33.8 L (37.2-46.3) % Plt Count 47 L D (140-440) 10*3/uL MPV 14.1 H (9.5-12.2) fL Immature Plt Fraction 18.3 H (1.1-6.1) % Microbiology - Last 24 Hours (Table) 01/20/25 21:48 Urine Culture - Preliminary Urine,Voided Gram Neg Bacilli Assessment and Plan (1) Chronic ITP (idiopathic thrombocytopenia) Status: Acute Priority: High Code(s): D69.3 - IMMUNE THROMBOCYTOPENIC PURPURA SNOMED Code(s): 76000400 Plan: ITP - Diagnosis and treatment as stated in consult. - Patient did have a period of time where she did not require any medications/treatment for her ITP. - S/p 2 doses IVIG . Premedications did help prevent side effects of infusion - Orders being sent for weekly CBC monitoring in [place] -Follow-up scheduled with Clerical Adjudicator, plan to initiate new oral therapy with Promacta. Pulse dose dex scheduled to begin on 01/26. Script sent from clinic. Discussed POC with pt. She verbalized understanding Doctor attests: I performed a history and physical examination of this patient, developed impression and plan of care. Discussed with dictator. I agree with dictators note, documented as a scribe.
== END 2025-01-22 16:09 | disposition home or self-care (01) | DRG 813 ==
LOC: EC 22:12 → 3SCARD 01-20 00:15
PROVIDERS: ADMIT Hospitalist; ATTEND Hospitalist
DX: D69.3 Immune thrombocytopenic purpura (principal); F32.A Depression, unspecified; N39.0 Urinary tract infection, site not specified; F41.9 Anxiety disorder, unspecified; Z79.82 Long term (current) use of aspirin; Z79.899 Other long term (current) drug therapy
CPT/HCPCS: 36415; 70450; 72125; 80048; 80053; 81001; 83036; 85025; 85027; 85610; 85730; 87077; 87086; 87186; 96361; 96374; 96375; 96376; 99291

== ENCOUNTER → 2025-03-04 | Outpatient (CLI) | payer BC ==
[2025-03-04 20:36] LABS: Basophils # (A) 0.04 X 10*3/uL (0.00-0.10); Basophils % (A) 0.6 %; Eosinophils # (A) 0.07 X 10*3/uL (0.04-0.35); Eosinophils % (A) 1.1 %; HCT 37.1 % (37.2-46.3); HGB 11.6 g/dL (12.0-15.0); Immature Platelet Fraction 46.1 % (1.1-6.1); Lymphocytes # (A) 1.79 X 10*3/uL (0.90-5.00); Lymphocytes % (A) 27.3 %; MCH 29.5 pg (27.0-32.0); MCHC 31.3 g/dL (32.0-37.0); MCV 94.4 FL (80.0-97.0); Monocytes # (A) 0.57 X 10*3/uL (0.20-1.00); Monocytes % (A) 8.7 %; NRBC Per 100 WBC 0 X 10*3/uL (0.00-0.01); Neutrophils # (A) 4.07 X 10*3/uL (1.80-7.70); Platelet Count 3 X 10*3/uL (140-440); RBC 3.93 X 10*6/uL (4.10-5.20); RBC Morphology Normal (Normal); RDW 14.6 % (11.5-14.5); WBC 6.56 X 10*3/uL (4.50-10.00)
== END | disposition home or self-care (01) ==
LOC: LABWHC1 13:44
PROVIDERS: ATTEND Internal Medicine
DX: D69.3 Immune thrombocytopenic purpura (principal); D64.9 Anemia, unspecified; J45.909 Unspecified asthma, uncomplicated; F41.1 Generalized anxiety disorder
CPT/HCPCS: 36415; 85025

== ENCOUNTER 2025-03-05 13:59 | Inpatient (IN) | payer BC ==
--- NOTE | 2025-03-05 15:26 | ED ---
General Adult HPI - General Chief complaint: Recheck/Abnormal Lab/Rx Stated complaint: Abn Labs/Dizziness Source: patient Mode of arrival: ambulatory Limitations: no limitations - History of Present Illness Initial comments: Dictation was produced using [employer] dictation software. please excuse any grammatical, word or spelling errors. Chief Complaint: 59-year-old female sent in by PCP for thrombocytopenia History of Present Illness: Patient 59-year-old female history of ITP. States that she has been having her platelets monitored and found to be low. States that couple days ago her platelets were found to be 3. Told to come to the ER by primary care doctor for further care. Patient denies any symptoms at this time. Denies any bruising The ROS documented in this emergency department record has been reviewed and confirmed by me. Those systems with pertinent positive or negative responses have been documented in the HPI. All other systems are other negative and/or noncontributory. - Related Data Home Medications Medication Instructions Recorded Confirmed ALPRAZolam [Xanax] 0.5 mg PO Q6H 01/20/25 01/20/25 Aspirin EC [Ecotrin Low Dose] 81 mg PO DAILY 01/20/25 01/20/25 Baclofen 10 - 20 mg PO TID PRN 01/20/25 01/20/25 Bumetanide [BUMEX] 2 mg PO DAILY 01/20/25 01/20/25 Gabapentin [Neurontin] 300 mg PO BID 01/20/25 01/20/25 Montelukast [Singulair] 10 mg PO DAILY 01/20/25 01/20/25 Oxybutynin Chloride [oxyBUTYnin 10 mg PO DAILY 01/20/25 01/20/25 chloride ER] Pantoprazole [Protonix] 40 mg PO DAILY 01/20/25 01/20/25 Potassium Chloride ER [K-Dur 20] 40 meq PO DAILY 01/20/25 01/20/25 Potassium Citrate [Urocit-K] 20 meq PO BID 01/20/25 01/20/25 Rimegepant Sulfate [Nurtec Odt] 75 mg PO Q48H PRN 01/20/25 01/20/25 Rizatriptan Benzoate 10 mg PO DAILY PRN 01/20/25 01/20/25 Tamsulosin [Flomax] 0.4 mg PO DAILY 01/20/25 01/20/25 Tirzepatide [Zepbound] 5 mg SQ SA 01/20/25 01/20/25 allopurinoL [Zyloprim] 300 mg PO DAILY 01/20/25 01/20/25 buPROPion XL [Wellbutrin XL] 300 mg PO DAILY 01/20/25 01/20/25 hydroCHLOROthiazide [Hydrodiuril] 25 mg PO DAILY 01/20/25 01/20/25 ondansetron HCL [Zofran] 8 mg PO Q6H PRN 01/20/25 01/20/25 oxyCODONE-APAP 10-325MG [Percocet 1 tab PO Q8H PRN 01/20/25 01/20/25 10-325 mg] Previous Rx's Medication Instructions Recorded Fluconazole [Diflucan] 100 mg PO DAILY 3 Days #3 tablet 01/22/25 cefuroxime axetiL [Ceftin] 500 mg PO BID 3 Days #6 tab 01/22/25 Allergies Allergy/AdvReac Type Severity Reaction Status Date / Time amoxicillin Allergy Rash/Hives Verified 01/20/25 09:55 azithromycin [From Zithromax] Allergy Rash/Hives Verified 01/20/25 09:55 coconut Allergy Rash/Hives Verified 01/20/25 09:55 niacin Allergy Rash/Hives Verified 01/20/25 09:55 nitrofurantoin Allergy Unknown Verified 01/20/25 09:55 [From Macrobid] Penicillins Allergy Rash/Hives Verified 01/20/25 09:55 Review of Systems ROS Statement: Those systems with pertinent positive or pertinent negative responses have been documented in the HPI. ROS Other: All systems not noted in ROS Statement are negative. Past Medical History Past Medical History: Blood Disorder Additional Past Medical History / Comment(s): ITP, kidney stones History of Any Multi-Drug Resistant Organisms: None Reported Past Surgical History: Orthopedic Surgery Past Psychological History: Anxiety, Depression Smoking Status: Never smoker Past Alcohol Use History: None Reported Past Drug Use History: None Reported - Past Family History Mother Family Medical History: Congestive Heart Failure (CHF), Coronary Artery Disease (CAD) Father Family Medical History: Congestive Heart Failure (CHF), Coronary Artery Disease (CAD), Diabetes Mellitus, Dialysis General Exam - General Exam Comments Initial Comments: PHYSICAL EXAM: General Impression: Alert and oriented x3, not in acute distress HEENT: Normocephalic atraumatic, extra-ocular movements intact, pupils equal and reactive to light bilaterally, mucous membranes moist. Cardiovascular: Heart regular rate and rhythm Chest: Able to complete full sentences, no retractions, no tachypnea Abdomen: abdomen soft, non-tender, non-distended, no organomegaly Musculoskeletal: Pulses present and equal in all extremities, no peripheral edema Motor: no focal deficits noted Neurological: CN II-XII grossly intact, no focal motor or sensory deficits noted Skin: Intact with no visualized rashes Psych: Normal affect and mood Limitations: no limitations Course Vital Signs 03/05/25 14:39 Temperature 97.8 F Pulse Rate 67 Respiratory 16 Rate Blood Pressure 144/82 O2 Sat by Pulse 99 Oximetry Medical Decision Making - Medical Decision Making Was pt. sent in by a medical professional or institution (MYRTLE [place], ERP TECHNICAL LEAD, urgent care, hospital, or fdc...) When possible be specific @ -No Did you speak to anyone other than the patient for history (EMS, parent, family, police, friend...)? What history was obtained from this source @ -No Did you review nursing and triage notes (agree or disagree)? Why? @ -I reviewed and agree with nursing and triage notes Were old charts reviewed (outside hosp., previous admission, EMS record, old EKG, old radiological studies, urgent care reports/EKG's, fdc records)? Report findings @ -No old charts were reviewed Differential Diagnosis (chest pain, altered mental status, abdominal pain women, abdominal pain men, vaginal bleeding, musculoskeletal, weakness, fever, dyspnea, syncope, headache, dizziness, GI bleed, back pain, seizure, CVA, palpatations, mental health)? @ -ITP, TTP, DIC EKG interpreted by me (3pts min.). @ -None done X-rays interpreted by me (1pt min.). @ -None done CT interpreted by me (1pt min.). @ -None done U/S interpreted by me (1pt. min.). @ -None done What testing was considered but not performed or refused? (CT, X-rays, U/S, labs)? Why? @ -None What meds were considered but not given or refused? Why? @ -None Was smoking cessation discussed for >3mins.? @ -No Were there social determinants of health that impacted care today? How? (Homelessness, low income, unemployed, alcoholism, drug addiction, transportation, low edu. Level, literacy, decrease access to med. care, assisted, rehab)? @ -No Was there de-escalation of care discussed even if they declined (Discuss DNR or withdrawal of care, Hospice)? DNR status @ -No What co-morbidities impacted this encounter? (DM, HTN, Smoking, COPD, CAD, Cancer, CVA, ARF, Chemo, Hep., AIDS, mental health diagnosis, sleep apnea, mor bid obesity)? @ -ITP Was patient admitted / discharged? Hospital course, mention meds given and rou te, prescriptions, significant lab abnormalities, going to OR and other pertinent info. @ -59-year-old female presents with profound thrombocytopenia. Vital signs stable. Physical examination is benign. No physical exam findings to suggest bleeding. Laboratory evaluation obtained. Platelet count of 1. Rest of labs within acceptable limits. Patient ordered for platelet transfusion. Will be admitted. Case discussed with hospitalist for admission. Hematology on consult Did you discuss the management of the patient with other professionals (professionals i.e. , PA, ERP TECHNICAL LEAD, lab, RT, psych nurse, health and social care teacher, watch parts grinder, teacher, commanding officer traffic division, immigration case worker)? Give summary @ -Case discussed with hospitalist for admission Was critical care preformed (if so, how long)? @ -Yes, 33 minutes Undiagnosed new problem with uncertain prognosis? @ -No Drug Therapy requiring intensive monitoring for toxicity (Heparin, Nitro, Insulin, Cardizem)? @ -No Were any procedures done? @ -No Diagnosis/symptom? Acute, or Chronic, or Acute on Chronic? Uncomplicated (without systemic symptoms) or Complicated (systemic symptoms)? @ -Thrombocytopenia Side effects of treatment? @ -No Exacerbation, Progression, or Severe Exacerbation? @ -No Poses a threat to life or bodily function? How? (Chest pain, USA, OR, pneumonia, PE, COPD, DKA, ARF, appy, cholecystitis, CVA, Diverticulitis, Homicidal, [place] icidal, threat to staff... and all critical care pts) @ -yes - Lab Data Result diagrams: 03/05/25 14:43 03/05/25 14:43 Lab Results 03/05/25 03/05/25 03/05/25 Range/Units 14:43 14:43 14:43 WBC 6.04 (4.50-10.00) 10*3/uL RBC 3.65 L (4.10-5.20) 10*6/uL Hgb 11.3 L (12.0-15.0) g/dL Hct 33.6 L (37.2-46.3) % MCV 92.1 (80.0-97.0) fL MCH 31.0 (27.0-32.0) pg MCHC 33.6 (32.0-37.0) g/dL Plt Count 1 L* D (140-440) 10*3/uL Immature Gran % (Auto) 0.2 % Neutrophils % 67.9 % Lymphocytes % 22.8 % Monocytes % 7.0 % Eosinophils % 1.8 % Basophils % 0.3 % Immature Gran # 0.01 (0.00-0.04) 10*3/uL Neutrophils # 4.10 (1.80-7.70) 10*3/uL Lymphocytes # 1.38 (0.90-5.00) 10*3/uL Monocytes # 0.42 (0.20-1.00) 10*3/uL Eosinophils # 0.11 (0.04-0.35) 10*3/uL Basophils # 0.02 (0.00-0.10) 10*3/uL Manual Slide Review Performed Immature Plt Fraction 33.5 H (1.1-6.1) % PT 10.6 (10.0-12.5) sec INR 1.0 (<1.2) APTT 21.4 L (22.0-30.0) sec Sodium 139 (137-145) mmol/L Potassium 3.4 L (3.5-5.1) mmol/L Chloride 104 (98-107) mmol/L Carbon Dioxide 30 (22-30) mmol/L Anion Gap 5 mmol/L BUN 21 H (7-17) mg/dL Creatinine 0.74 (0.52-1.04) mg/dL Est GFR (CKD-EPI)AfAm >90 (>60 ml/min/1.73 sqM) Est GFR (CKD-EPI)NonAf >90 (>60 ml/min/1.73 sqM) Glucose 79 (74-99) mg/dL Calcium 9.5 (8.4-10.2) mg/dL Total Bilirubin 0.7 (0.2-1.3) mg/dL AST 23 (14-36) U/L ALT 19 (4-34) U/L Alkaline Phosphatase 83 (38-126) U/L Total Protein 6.4 (6.3-8.2) g/dL Albumin 4.0 (3.5-5.0) g/dL Blood Type Blood Type Confirm Blood Type Recheck Bld Type Recheck Status Antibody Screen Spec Expiration Date 03/05/25 03/05/25 Range/Units 15:20 15:42 WBC (4.50-10.00) 10*3/uL RBC (4.10-5.20) 10*6/uL Hgb (12.0-15.0) g/dL Hct (37.2-46.3) % MCV (80.0-97.0) fL MCH (27.0-32.0) pg MCHC (32.0-37.0) g/dL Plt Count (140-440) 10*3/uL Immature Gran % (Auto) % Neutrophils % % Lymphocytes % % Monocytes % % Eosinophils % % Basophils % % Immature Gran # (0.00-0.04) 10*3/uL Neutrophils # (1.80-7.70) 10*3/uL Lymphocytes # (0.90-5.00) 10*3/uL Monocytes # (0.20-1.00) 10*3/uL Eosinophils # (0.04-0.35) 10*3/uL Basophils # (0.00-0.10) 10*3/uL Manual Slide Review Immature Plt Fraction (1.1-6.1) % PT (10.0-12.5) sec INR (<1.2) APTT (22.0-30.0) sec Sodium (137-145) mmol/L Potassium (3.5-5.1) mmol/L Chloride (98-107) mmol/L Carbon Dioxide (22-30) mmol/L Anion Gap mmol/L BUN (7-17) mg/dL Creatinine (0.52-1.04) mg/dL Est GFR (CKD-EPI)AfAm (>60 ml/min/1.73 sqM) Est GFR (CKD-EPI)NonAf (>60 ml/min/1.73 sqM) Glucose (74-99) mg/dL Calcium (8.4-10.2) mg/dL Total Bilirubin (0.2-1.3) mg/dL AST (14-36) U/L ALT (4-34) U/L Alkaline Phosphatase (38-126) U/L Total Protein (6.3-8.2) g/dL Albumin (3.5-5.0) g/dL Blood Type A Positive Blood Type Confirm A Positive Blood Type Recheck No Previous Record Bld Type Recheck Status CABO Indicated Antibody Screen POSITIVE Spec Expiration Date 03/08/20252314 Disposition Clinical Impression: Thrombocytopenia Disposition: ADMITTED IP TO THIS [facility] Condition: Serious Referrals: Nonstaff,Physician [REFERRING] - 1-2 days Decision Time: 17:08
[2025-03-05 15:33] LABS: Basophils # (A) 0.02 10*3/uL (0.00-0.10); Basophils % (A) 0.3 %; Eosinophils # (A) 0.11 10*3/uL (0.04-0.35); Eosinophils % (A) 1.8 %; HCT 33.6 % (37.2-46.3); HGB 11.3 g/dL (12.0-15.0); Immature Platelet Fraction 33.5 % (1.1-6.1); Lymphocytes # (A) 1.38 10*3/uL (0.90-5.00); Lymphocytes % (A) 22.8 %; MCH 31.0 pg (27.0-32.0); MCHC 33.6 g/dL (32.0-37.0); MCV 92.1 fL (80.0-97.0); Monocytes # (A) 0.42 10*3/uL (0.20-1.00); Monocytes % (A) 7.0 %; Neutrophils # (A) 4.10 10*3/uL (1.80-7.70); Neutrophils % (A) 67.9 %; RBC 3.65 10*6/uL (4.10-5.20); RDW 14.6 % (11.5-14.5); WBC 6.04 10*3/uL (4.50-10.00)
[2025-03-05 15:54] LABS: INR 1.0 (<1.2); Prothrombin Time 10.6 sec (10.0-12.5)
[2025-03-05 15:58] LABS: Partial Thromboplastin Time 21.4 sec (22.0-30.0)
[2025-03-05 16:17] LABS: ALT 19 U/L (4-34); AST 23 U/L (14-36); African American GFR (CKD) >90 (>60 ml/min/1.73 sqM); Albumin 4.0 g/dL (3.5-5.0); Alkaline Phosphatase 83 U/L (38-126); Anion Gap 5 mmol/L; Blood Urea Nitrogen 21 mg/dL (7-17); Calcium 9.5 mg/dL (8.4-10.2); Carbon Dioxide 30 mmol/L (22-30); Chloride 104 mmol/L (98-107); Glucose 79 mg/dL (74-99); Non-African American GFR(CKD) >90 (>60 ml/min/1.73 sqM); Potassium 3.4 mmol/L (3.5-5.1); Sodium 139 mmol/L (137-145); Total Protein 6.4 g/dL (6.3-8.2)
[2025-03-05 16:38] LABS: Platelet Count 1 10*3/uL (140-440)
[2025-03-05] MEDS ORDERED: NALOXONE 0.4 MG/ML 1 ML VIAL IV PRN (17:04)
[2025-03-05] MEDS: SODIUM CHLORIDE 0.9% 1,000 ML IV SCH (17:54)
[2025-03-05] MEDS ORDERED: BACLOFEN 10 MG TAB PO PRN (21:55)
[2025-03-05] MEDS ORDERED: NON FORMULARY DRUG (Rimegepant Sulfate [Nurtec Odt] 75 MG Tablet) PO PRN (21:55)
[2025-03-05] MEDS ORDERED: IOPAMIDOL CONTRAST (ORAL USE) VIAL PO PRN (21:57)
[2025-03-05] MEDS: POTASSIUM CITRATE 10 MEQ TABLET.ER PO SCH (22:29)
[2025-03-05] MEDS: ONDANSETRON ODT 8 MG TAB.RAPDIS PO PRN (23:22)
--- NOTE | 2025-03-06 00:51 | XR ---
EXAM: XR Chest, 1 View CLINICAL HISTORY: ITS.REASON XR Reason: chf TECHNIQUE: Frontal view of the chest. COMPARISON: No relevant prior studies available. FINDINGS: Lungs: Unremarkable. No consolidation. Pleural space: Unremarkable. No pneumothorax. Heart: Unremarkable. No cardiomegaly. Mediastinum: Unremarkable. Bones/joints: Unremarkable. IMPRESSION: No consolidation.
--- NOTE | 2025-03-06 01:18 | HP ---
HISTORY AND PHYSICAL CHIEF COMPLAINT: Abnormal platelets and thrombocytopenia. HISTORY OF PRESENT ILLNESS: This is a 59-year-old woman with a past medical history of multiple medical problems including thrombocytopenia. She was diagnosed with ITP since 2022, is having low platelets. Recently, the patient had IVIG at the hospital. Currently, the platelets were found to be 3 and currently the platelets were 1, the patient to resume multiple transfusions. The patient also complains of some bleeding from the right thumb area also. There is no history of fever, rigors, or chills. The patient was seen by Hematology/Oncology recently as well. The patient is currently on Promacta and the platelets did improve to 170 after Promacta according to her. PAST MEDICAL HISTORY: History of ITP. Rest of the history and the chart is also reviewed. HOME MEDICATIONS: Reviewed including Promacta. Doses and rest of medications are reviewed. ALLERGIES: Amoxicillin. FAMILY HISTORY: History of CHF and CAD. SOCIAL HISTORY: No history of smoke or alcohol. 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 REVIEW OF SYSTEMS: A 14-point review of systems negative except as mentioned earlier. PHYSICAL EXAMINATION: VITAL SIGNS: Pulse 69, blood pressure 101/64, and respirations 16. HEENT: Conjunctivae are normal. NECK: No JVD. CARDIOVASCULAR: S1, S2. RESPIRATIONS: Breath sounds diminished at the bases. ABDOMEN: Soft, nontender. LABORATORY DATA: Hemoglobin 11.3 and platelets are 1. Potassium 3.4. ASSESSMENT: 1. ITP acute exacerbation with severe thrombocytopenia. 2. Bleeding from the right thumb. 3. Anemia. 4. History of chronic ITP. 5. Hypokalemia. 6. History of nephrolithiasis. 7. Anxiety, depression. RECOMMENDATIONS AND DISCUSSION: This 59-year-old woman presented with multiple complex medical issues. We will monitor the patient closely. I would recommend CT scan of the abdomen, pelvis and chest to complete the workup and I would also recommend Hematology/Oncology consultation. Platelet transfusion has been ordered. Repeat labs in the morning. Resume the home medications. Guarded prognosis because of multiple complex medical issues. Further recommendations to follow. MMODL / IJN: [id number] /
--- NOTE | 2025-03-06 01:42 | CT ---
EXAM: CT Chest Without Intravenous Contrast CLINICAL HISTORY: ITS.REASON CT Reason: malignancy? low platelets TECHNIQUE: Axial computed tomography images of the chest without intravenous contrast. This CT exam was performed using one or more of the following dose reduction techniques: automated exposure control, adjustment of the mA and/or kV according to patient size, and/or use of iterative reconstruction technique. COMPARISON: No relevant prior studies available. FINDINGS: Lungs: Unremarkable. No mass. No consolidation. Pleural space: Unremarkable. No pneumothorax. No significant effusion. Heart: Unremarkable. No cardiomegaly. No significant pericardial effusion. No significant coronary artery calcifications. Bones/joints: Unremarkable. No acute fracture. No dislocation. Soft tissues: Unremarkable. Vasculature: Unremarkable. No thoracic aortic aneurysm. Lymph nodes: Unremarkable. No enlarged lymph nodes. IMPRESSION: Normal chest CT. EXAM: CT Abdomen and Pelvis Without Intravenous Contrast CLINICAL HISTORY: ITS.REASON CT Reason: malignancy? low platelets TECHNIQUE: Axial computed tomography images of the abdomen and pelvis without intravenous contrast. This CT exam was performed using one or more of the following dose reduction techniques: automated exposure control, adjustment of the mA and/or kV according to patient size, and/or use of iterative reconstruction technique. COMPARISON: No relevant prior studies available. FINDINGS: Lung bases: Unremarkable. No mass. No consolidation. ABDOMEN: Liver: Unremarkable. Gallbladder and bile ducts: Unremarkable. No calcified stones. No ductal dilation. Pancreas: Unremarkable. No ductal dilation. Spleen: Unremarkable. No splenomegaly. Adrenals: Unremarkable. No mass. Kidneys and ureters: Atrophy of the left kidney. Nonobstructing left- sided renal stones, measuring up to 5 mm. Stomach and bowel: Diverticulosis, without acute diverticulitis. No small bowel obstruction. No free air. PELVIS: Appendix: No findings to suggest acute appendicitis. Bladder: Unremarkable. No stones. Reproductive: Unremarkable as visualized. ABDOMEN and PELVIS: Intraperitoneal space: See above. Bones/joints: No acute fracture. No dislocation. Soft tissues: Unremarkable. Vasculature: Unremarkable. No abdominal aortic aneurysm. Lymph nodes: Unremarkable. No enlarged lymph nodes. IMPRESSION: 1. Nonobstructing left-sided renal stones, measuring up to 5 mm. 2. Diverticulosis, without acute diverticulitis. No small bowel obstruction. No free air.
[2025-03-06] MEDS: BUMETANIDE 1 MG TAB PO SCH (09:34)
[2025-03-06] MEDS: FAMOTIDINE 20 MG TAB PO SCH (09:38)
[2025-03-06] MEDS: POTASSIUM CHLORIDE ER 20 MEQ TAB.ER PO SCH (09:38)
[2025-03-06] MEDS: TAMSULOSIN 0.4 MG CAP.ER.24H PO SCH (09:39)
[2025-03-06] MEDS: PANTOPRAZOLE 40 MG TABLET PO SCH (09:39)
[2025-03-06] MEDS: GABAPENTIN 300 MG CAP PO SCH (09:39)
[2025-03-06] MEDS: buPROPion XL 300 MG TAB.ER.24H PO SCH (09:39)
[2025-03-06] MEDS: hydroCHLOROthiazide 25 MG TAB PO SCH (09:40)
[2025-03-06] MEDS: oxyCODONE-APAP 10-325MG 1 EACH TAB PO PRN (09:40)
[2025-03-06] MEDS: OXYBUTYNIN 10 MG TAB.ER.24 PO SCH (09:41)
[2025-03-06] MEDS: ELTROMBOPAG OLAMINE 50 MG PO SCH (10:09)
[2025-03-06 12:43] LABS: Basophils # (A) 0.01 10*3/uL (0.00-0.10); Basophils % (A) 0.2 %; Eosinophils # (A) 0.16 10*3/uL (0.04-0.35); Eosinophils % (A) 2.7 %; HCT 38.0 % (37.2-46.3); HGB 12.0 g/dL (12.0-15.0); Immature Platelet Fraction 40.4 % (1.1-6.1); Lymphocytes # (A) 1.34 10*3/uL (0.90-5.00); Lymphocytes % (A) 22.6 %; MCH 30.1 pg (27.0-32.0); MCHC 31.6 g/dL (32.0-37.0); MCV 95.2 fL (80.0-97.0); Monocytes # (A) 0.39 10*3/uL (0.20-1.00); Monocytes % (A) 6.6 %; Neutrophils # (A) 4.00 10*3/uL (1.80-7.70); Neutrophils % (A) 67.6 %; RBC 3.99 10*6/uL (4.10-5.20); RDW 14.9 % (11.5-14.5); WBC 5.92 10*3/uL (4.50-10.00)
[2025-03-06 13:01] LABS: Platelet Count 3 10*3/uL (140-440)
[2025-03-06 13:14] LABS: African American GFR (CKD) >90 (>60 ml/min/1.73 sqM); Anion Gap 7 mmol/L; Blood Urea Nitrogen 14 mg/dL (7-17); Calcium 9.3 mg/dL (8.4-10.2); Carbon Dioxide 27 mmol/L (22-30); Chloride 106 mmol/L (98-107); Glucose 95 mg/dL (74-99); Non-African American GFR(CKD) >90 (>60 ml/min/1.73 sqM); Potassium 4.3 mmol/L (3.5-5.1); Sodium 140 mmol/L (137-145)
[2025-03-06 16:36] LABS: Bilirubin,Urine Negative (Negative); Blood,Urine Negative (Negative); Color,Urine Colorless; Glucose,Urine (UA) Negative (Negative); Ketones,Urine Negative (Negative); Leukocyte Esterase,Urine Negative (Negative); Nitrite,Urine Negative (Negative); PH, Urine 5.0 (5.0-8.0); Protein,Urine Negative (Negative); Specific Gravity,Urine 1.008 (1.001-1.035); Urobilinogen,Urine <2.0 mg/dL (<2.0)
--- NOTE | 2025-03-06 16:53 | PN ---
PROGRESS NOTE DATE OF SERVICE: 03/06/2025 SUBJECTIVE: This is a 59-year-old woman was admitted with significant low platelets at 1. The patient was taking Promacta. The patient also has some few bruises and also some bleeding on the right nailfold. The patient received platelet transfusion. Today's platelet count is 3. There is no history of fever, rigors, or chills. PAST MEDICAL HISTORY: Reviewed. REVIEW OF SYSTEMS: A 14-point review of systems negative except as mentioned earlier. CURRENT MEDICATIONS: Reviewed. PHYSICAL EXAMINATION: VITAL SIGNS: Pulse 77, blood pressure 119/60, and respirations 16. CHEST: Clear to auscultation. CARDIOVASCULAR: S1, S2. ABDOMEN: Soft. NERVOUS SYSTEM: Nonfocal. LABORATORY DATA: Reviewed. ASSESSMENT: 1. Severe thrombocytopenia possibly secondary to ITP acute exacerbation. 2. Bleeding from the right thumb and spontaneous ecchymosis. 3. Anemia. 4. History of chronic ITP. 5. Hypokalemia. 6. History of nephrolithiasis. 7. Anxiety, depression. RECOMMENDATIONS AND DISCUSSION: Recommend to continue current management and continue symptomatic treatment. Otherwise, closely follow with Hematology, Oncology. CT scan of the abdomen and pelvis negative. The patient is on Promacta as well as steroids. I would recommend repeat labs in the morning. Guarded prognosis. Further recommendations to follow. MMODL / IJN: [id number] /
--- NOTE | 2025-03-06 17:27 | P.CONS ---
History of Present Illness - Reason for Consult Consult date: 03/06/25 thrombocytopenia Requesting physician: Chelo Titus - Chief Complaint thrombocytopenia on OP labs - History of Present Illness Ms. Manning is a very pleasant 59 yo female with history of ITP who has been struggling with recurrent ITP flare since 01/2025 with recurrent hospitalizations for severe thrombocvytopenia, here for plt OP 3 despite being on promacta for the past couple weeks. repeat CBC in the ER with plt 1. she has petechia, no bleeding. WBC 6, Hgb 11, normal Cr. CT CAP done, negative other then diverticulosis without diverticulitis. She has been following with rheumatology and felt to possibly have APAS. Started on pulse decadron which she has respo nded to in the past and repeat CBC this am with plt 3. She currently denies any bleeding other than hang nail that began bleeding yesterday as she was coming to the ER, after her plt had decreased. doing better when it's wrapped with pressure. petechia increasing, mainly on her legs. no hemorrhagic blisters at this time. couple bruises on her arms. Hematologic History: Follows with Dr. Yulissa Duran. Ms. Manning is a 58-year-old woman with a past medical history significant for ITP treated with steroids, IVIG, and Nplate who presents as a second opinion. She was found to have ITP on routine blood work in November 2022. At that time, she was started on oral prednisone from November to February of 2023. She did require hospitalization at [facility] from 06/02/2023 through 06/05/2023 due to profound thrombocytopenia with platelets of 6000. She received 2 bags of IVIG and 2 units of platelets at that time with subsequent increase in platelets to 85,000. She did note having significant myalgias and pain with IVIG. Nplate was eventually started in August 2023, which she was maintained on until 02/28/2024 with her last treatment. She was also on steroids at that time and page garland took steroids in March 2024. Since then, her platelets have been normal. Currently, she continues to have right shoulder discomfort following injury in September 2023 where snow/ice fell and hit her right shoulder resulting in labrum tear and frozen shoulder. She denies any ecchymosis, petechiae, or bleeding diathesis. She has undergone autoimmune workup through her primary care physician and has been referred to rheumatology, but has yet to go to this appointment. She denies any significant alcohol use/abuse. Following her last Nplate and treatment, she did have significant swelling/edema in the arms and legs requiring diuretics and has been slowly improving. She still notes difficulty with edema in the right arm and sometimes causes difficulty in her getting certain shirts on. 07/2024: Established care with Dr. Tammie Duran. -Reviewed medical records prior to visit and summarized clinical course to date with Yani. She was diagnosed with ITP in November 2022 initially treated with steroids. In May 2023, she required hospitalization due to severe thrombocytopenia with platelets of 6000 and received 2 units of platelets along with 2 bags of IVIG. Subsequently, she had recurrent thrombocytopenia requiring Nplate treatment from August 2000 through 02/28/2024 that was complicated by edema secondary to Nplate. She completed steroids in March 2024 and has had normal platelet counts since then. Reviewed CBC on today's visit revealing platelets 239, hemoglobin 13.2 (MCV 94.6), WBC 6.50, We discussed that at this time, she does not require any treatment for ITP, She has been undergoing CBC monthly, which I agree with, We discussed a variety of etiologies for ITP including infection, autoimmune conditions, malignancy, and idiopathic ITP. I did encourage her to proceed with rheumatology evaluation to rule out any autoimmune conditions. We discussed that if she has recurrent episode of ITP in the future, this would be treated with steroids upfront and then could proceed to TPO agonist such as Nplate or Promacta. In her case, we could try Promacta as she had significant edema from Nplate. Other treatments for refractory ITP include rituximab, fostamatinib, and splenectomy. We discussed splenectomy is an older treatment with high morbidity and is much less commonly performed now with more effective treatments. She would like to avoid long-term steroid use if possible, and I discussed that I would avoid long-term steroids in the setting of refractory ITP. Follow-up in 3 months with CBC monthly 11/05/24: Most recent CBC at the end of September 2024 obtained through her primary care physician revealed platelets of 163 with WBC 6.50 and hemoglobin 13.3. Clinically, she is not having any bruising or bleeding diathesis and is otherwise feeling well. Will have her repeat CBC at the [facility] lab to ensure this is not pseudothrombocytopenia. We discussed that if she does not fact have platelets in the single digits, I would recommend hospitalization for high-dose steroids and potentially IVIG. If TPO agonist is required in the future, we would use Promacta as she has significant edema from Nplate. Follow- up in 3 months with CBC monthly for now. We will contact her with results of repeat CBC following today's visit 12/02/24: CBC following her last visit in October 2024 revealed persistent thrombocytopenia with platelets between 917 concerning for recurrent ITP. She completed 2 rounds of dexamethasone 40 mg daily for 4 days with subsequent improvement in her thrombocytopenia. Clinically, she notes having fatigue without any bruising or bleeding diathesis. She did have elevated cardiolipin and beta-2 glycoprotein IgM's on 11/18/2024 during rheumatologic evaluation. Lupus anticoagulant was negative. She notes having to repeat labs in 3 months for rheumatology due to concern for potential autoimmune process. We did discuss the potential diagnosis of antiphospholipid syndrome, which can occur in isolation or in conjunction with other autoimmune disorders. We would need to repeat cardiolipin and beta-2 glycoprotein IgM's in 3 months to confirm the diagnosis. We did discuss that typically, this is treated with Coumadin, which she is refusing at this time. Other options such as Lovenox was discussed, which she was more amenable to. DOAC such as Eliquis or Xarelto found to be ineffective for antiphospholipid syndrome. For now, we will obtain CBC monthly until her next visit. She will contact us whether rheumatology will repeat antiphospholipid syndrome labs or not. If not, we will plan on repeating these in mid February 2025. Follow-up in 3 months with CBC monthly for now. 01/20/25: Admitted for severe thrombocytopenia, plt 2, improved with pulse decadron and IVIG x 2 doses, and discharged with plt 47. Discharged to continue decadron for 4 days, 40mg, 01/26/2025 through 01/29/2025 02/02/25: Repeat testing is scheduled with rheumatology in February 2025 (02/18/2025). She was hospitalized at [facility] on 01/20/2025 for severe thrombocytopenia secondary to ITP with platelets of 2000 that improved to 47,000 on discharge with pulsed dose IV dexamethasone and 2 doses of IVIG. On discharge, she took another course of dexamethasone 40 mg p.o. daily for 4 days from 01/26/2025 through 01/29/2025. Clinically, she denies any new ecchymosis with prior ecchymoses slowly resolving. As her platelets are continuing to increase and are above 50,000, I did recommend holding off on initiating Promacta at this time and continue to monitor CBC weekly for the next month. If platelets decrease below 50,000, starting Promacta 50 mg daily would be appropriate. She already has standing order for CBC weekly. Will hold off on additional steroids at this time. Urinalysis ordered for the dysuria she noted today. She did inq uire into [employer] as to whether we can help obtain this for her. Will have our staff see if she qualifies for any patient assistance for this medication that is used to treat migraine headaches. Follow-up on 03/04/2025 03/04/25: Platelets decreased to 14 on 02/09/2025 and was started on Promacta 50 mg daily with CBC on 02/24/2025 revealing platelets of 174. We will order repeat CBC through [facility] lab. If she does have platelet count less than 10, she will likely need to be admitted for inpatient management. For now continue Promacta 50 mg daily. With regards to possible antiphospholipid syndrome, we will obtain labs from rheumatology. We did briefly discuss that this is treated with anticoagulation, which would not be safe at the present time. She would prefer not to be treated with Coumadin. follow up in 4 weeks. Past Medical History Past Medical History: Blood Disorder Additional Past Medical History / Comment(s): ITP, kidney stones History of Any Multi-Drug Resistant Organisms: None Reported Past Surgical History: Orthopedic Surgery Past Psychological History: Anxiety, Depression Smoking Status: Never smoker Past Alcohol Use History: None Reported Past Drug Use History: None Reported - Past Family History Mother Family Medical History: Congestive Heart Failure (CHF), Coronary Artery Disease (CAD) Father Family Medical History: Congestive Heart Failure (CHF), Coronary Artery Disease (CAD), Diabetes Mellitus, Dialysis Medications and Allergies Home Medications Medication Instructions Recorded Confirmed Type ALPRAZolam [Xanax] 0.5 mg PO Q6H PRN 01/20/25 03/05/25 History Aspirin EC [Ecotrin Low Dose] 81 mg PO DAILY 01/20/25 03/05/25 History Baclofen 10 - 20 mg PO TID PRN 01/20/25 03/05/25 History Bumetanide [BUMEX] 2 mg PO BID 01/20/25 03/05/25 History Gabapentin [Neurontin] 300 mg PO BID 01/20/25 03/05/25 History Oxybutynin Chloride [oxyBUTYnin 10 mg PO DAILY 01/20/25 03/05/25 History chloride ER] Pantoprazole [Protonix] 40 mg PO DAILY 01/20/25 03/05/25 History Potassium Chloride ER [K-Dur 20] 40 meq PO DAILY 01/20/25 03/05/25 History Potassium Citrate [Urocit-K] 20 meq PO BID 01/20/25 03/05/25 History Rimegepant Sulfate [Nurtec Odt] 75 mg PO Q48H PRN 01/20/25 03/05/25 History Rizatriptan Benzoate 10 mg PO DAILY PRN 01/20/25 03/05/25 History Tamsulosin [Flomax] 0.4 mg PO DAILY 01/20/25 03/05/25 History allopurinoL [Zyloprim] 300 mg PO DAILY 01/20/25 03/05/25 History buPROPion XL [Wellbutrin XL] 300 mg PO DAILY 01/20/25 03/05/25 History hydroCHLOROthiazide [Hydrodiuril] 25 mg PO DAILY 01/20/25 03/05/25 History oxyCODONE-APAP 10-325MG [Percocet 1 tab PO Q8H PRN 01/20/25 03/05/25 History 10-325 mg] Eltrombopag Olamine [Promacta] 50 mg PO DAILY 03/05/25 03/05/25 History Famotidine 40 mg PO DAILY 03/05/25 03/05/25 History Nystatin 100,000 Unit/gm Powd 1 applic TOPICAL BID PRN 03/05/25 03/05/25 History [Mycostatin Powder] Ondansetron Odt [Zofran Odt] 8 mg PO Q8HR PRN 03/05/25 03/05/25 History Tirzepatide [Zepbound] 7.5 mg SQ Q7D 03/05/25 03/05/25 History Tirzepatide [Zepbound] 10 mg SQ DIRECTED 03/05/25 03/05/25 History dexAMETHasone [Decadron] 40 mg PO DAILY PRN 03/05/25 03/05/25 History Allergies Allergy/AdvReac Type Severity Reaction Status Date / Time amoxicillin Allergy Rash/Hives Verified 03/05/25 18:04 azithromycin [From Zithromax] Allergy Rash/Hives Verified 03/05/25 18:04 coconut Allergy Rash/Hives Verified 03/05/25 18:04 niacin Allergy Rash/Hives Verified 03/05/25 18:04 nitrofurantoin Allergy Unknown Verified 03/05/25 18:04 [From Macrobid] Penicillins Allergy Rash/Hives Verified 03/05/25 18:04 Physical Exam Vitals: Vital Signs Temp Pulse Resp BP Pulse Ox 03/06/25 06:08 98.1 F 77 16 119/68 98 03/06/25 03:32 98.3 F 77 16 110/63 96 03/05/25 23:25 98.1 F 66 16 141/74 100 03/05/25 21:03 98.3 F 69 16 101/64 99 03/05/25 20:43 98.4 F 66 16 112/68 100 03/05/25 20:29 98.7 F 68 16 110/54 100 03/05/25 18:57 97.8 F 66 18 140/75 03/05/25 18:28 97.8 F 58 L 18 140/78 03/05/25 18:08 97.9 F 66 18 122/58 03/05/25 17:54 97.9 F 69 18 130/83 03/05/25 14:39 97.8 F 67 16 144/82 99 Intake and Output 03/05/25 03/06/25 03/06/25 22:59 06:59 14:59 Intake Total 352 263 Balance 352 263 Intake: Blood Product 352 263 Platelet Pheresis Pas 0 263 Psoralen Unit [id number] Platelet Pheresis Pas 352 Psoralen Unit [id number] no acute distress. petechia on bilateral lower extremities. no jaundice or icterus. no respiratory distress. Results CBC & Chem 7: 03/06/25 12:30 03/06/25 12:30 Labs: Abnormal Lab Results - Last 24 Hours (Table) 03/05/25 03/05/25 03/05/25 Range/Units 14:43 14:43 14:43 RBC 3.65 L (4.10-5.20) 10*6/uL Hgb 11.3 L (12.0-15.0) g/dL Hct 33.6 L (37.2-46.3) % MCHC (32.0-37.0) g/dL Plt Count 1 L* D (140-440) 10*3/uL Immature Plt Fraction 33.5 H (1.1-6.1) % APTT 21.4 L (22.0-30.0) sec Potassium 3.4 L (3.5-5.1) mmol/L BUN 21 H (7-17) mg/dL Blood Bank Comment 03/05/25 03/06/25 Range/Units 20:17 12:30 RBC 3.99 L (4.10-5.20) 10*6/uL Hgb (12.0-15.0) g/dL Hct (37.2-46.3) % MCHC 31.6 L (32.0-37.0) g/dL Plt Count 3 L* D (140-440) 10*3/uL Immature Plt Fraction 40.4 H (1.1-6.1) % APTT (22.0-30.0) sec Potassium (3.5-5.1) mmol/L BUN (7-17) mg/dL Blood Bank Comment Sent to [facility] A CT scan - abdomen: report reviewed CT scan - chest: report reviewed CT scan - pelvis: report reviewed Assessment and Plan Assessment: 1. Severe thrombocytopenia due to refractory ITP Plan: Ms. Manning is a very pleasant 59 yo female with long standing history of ITP, currently with recurrent severe thrombocytopenia requiring repeated hospitalizations. She was recently discharged on promacta after her plt improved with decadron/IVIG, however OP labs showed plt back down to 3, and she was brought back to the hospital. Has petechia but no bleeding. - Severe thrombocytopenia which could lead to life threating spontaneous bleeding due to ITP - Hold off on plt transfusions as this will not improve her plt count unless she has active bleeding - continue pulse decadron (decadron ordered, but not yet started) and promacta - having recurrent UTI needing antiboitics, ?antibiotic induced ITP however it is unusual for plt to drop after completing treatment for UTI - UA/urine culture for possible recurring UTI per pt - may need IVIG - CT reviewed, no obvious etiology for her ITP flare - In 11/2024, she had TSH, iron panel, B12, folate checked which were normal - will check viral studies, h. pylori (may need to check H. pylori OP as this is not on formulary), and repeat iron/b12/folate/tsh to rule out contributing etiology to her flare of ITP - Consider rituxan vs OP tavalisse if pt not improving with promacta; would need baseline BMB prior to rituxan therapy and may consider BMB if continues to have refractory ITP - monitor pt closely IP until plt improving Discussed with pt and she was agreeable. all questions answered. discussed with nursing staff. discussed with primary team.
[2025-03-06] MEDS: Eltrombopag Olamine [Promacta] 50 MG PO SCH (21:42)
[2025-03-06] MEDS: ALPRAZolam 0.5 MG TAB PO PRN (22:17)
[2025-03-07] MEDS: ACETAMINOPHEN TAB 325 MG TAB PO PRN (08:14)
[2025-03-07 10:35] LABS: Hepatitis A Antibody IgM Nonreactive (Nonreactive); Hepatitis B Surface Antigen Nonreactive (Nonreactive); Hepatitis C IgG Antibody Nonreactive (Nonreactive); LDH 232 U/L (120-246)
[2025-03-07 10:36] LABS: Anion Gap 12.50 mmol/L (4.00-12.00); BUN/Creat Ratio 16.43 Ratio (12.00-20.00); Blood Urea Nitrogen 11.5 mg/dL (9.0-27.0); Calcium 9.6 mg/dL (8.7-10.3); Carbon Dioxide 22.5 mmol/L (21.6-31.8); Chloride 108 mmol/L (96-109); Ferritin 155.0 ng/mL (10.0-291.0); Glucose 187 mg/dL (70-110); Iron 76 UG/DL (50-170); Potassium 4.1 mmol/L (3.5-5.5); Sodium 143 mmol/L (135-145); T4, Free (Free Thyroxine) 0.86 ng/dL (0.80-1.80); Total Iron Binding Capacity 335 UG/DL (228-460); Vitamin B12 692.0 pg/mL (200.0-944.0)
[2025-03-07 10:46] LABS: HCT 36.4 % (37.2-46.3); HGB 11.7 g/dL (12.0-15.0); Immature Platelet Fraction 60.4 % (1.1-6.1); MCH 29.9 pg (27.0-32.0); MCHC 32.1 g/dL (32.0-37.0); MCV 93.1 FL (80.0-97.0); NRBC Per 100 WBC 0 X 10*3/uL (0.00-0.01); Platelet Count 3 X 10*3/uL (140-440); RBC 3.91 X 10*6/uL (4.10-5.20); RDW 14.7 % (11.5-14.5); WBC 6.29 X 10*3/uL (4.50-10.00)
[2025-03-07 11:01] LABS: Basophils # (A) 0 X 10*3/uL (0.00-0.10); Basophils % (A) 0 %; Eosinophils # (A) 0 X 10*3/uL (0.04-0.35); Eosinophils % (A) 0 %; Immature Grans, Automated 0.30 %; Lymphocytes # (A) 0.59 X 10*3/uL (0.90-5.00); Lymphocytes % (A) 9.4 %; Monocytes # (A) 0.05 X 10*3/uL (0.20-1.00); Monocytes % (A) 0.8 %; Neutrophils # (A) 5.63 X 10*3/uL (1.80-7.70); Neutrophils % (A) 89.5 %
[2025-03-07] MEDS: BUMETANIDE 1 MG TAB PO SCH (13:07)
--- NOTE | 2025-03-07 14:45 | P.PN ---
Progress Note - Text Progress Note Date: 03/07/25 Pt's plt today 3, unchanged. started on pulse decadron yesterday. will give a dose of ivig 1gm/kg x1 and continue with close monitoring. discussed with pharmacy and nursing staff. monitor for bleeding and consider plt transfusion only if she is bleeding.
[2025-03-07] MEDS: ONDANSETRON 4 MG/2 ML VIAL IVP STA (15:17)
[2025-03-07] MEDS: ACETAMINOPHEN TAB 500 MG TAB PO ONE (15:17)
[2025-03-07] MEDS: IMMUNE GLOBULIN (GAMMAGARD) 30 GM in EMPTY BAG 1 BAG IV ONE ×2 (16:08→18:44)
[2025-03-07] MEDS: amLODIPine 5 MG TAB PO SCH (18:47)
[2025-03-07] MEDS: IMMUNE GLOBULIN (GAMMAGARD) 10 GM in EMPTY BAG 1 BAG IV ONE (20:09)
--- NOTE | 2025-03-07 23:29 | PN ---
PROGRESS NOTE DATE OF SERVICE: 03/07/2025 SUBJECTIVE: This is a 59-year-old woman, who was admitted with thrombocytopenia acute exacerbation, had a platelet count of 3, up from 1 yesterday. IVIG has been recommended by Hematology/Oncology. No chest pain. No palpitation. OBJECTIVE: VITAL SIGNS: Pulse is 95, blood pressure 150/90, respirations 18. CHEST: Clear to auscultation. CARDIOVASCULAR: S1, S2. ABDOMEN: Soft. LABORATORY DATA: Reviewed. Hepatitis panel is negative. ASSESSMENT: 1. Severe thrombocytopenia possibly secondary to immune thrombocytopenic purpura acute exacerbation, on IVIG. 2. Bleeding from the right thumb and spontaneous ecchymoses, improving. 3. Anemia. 4. History of chronic immune thrombocytopenic purpura. 5. Hypokalemia. 6. History of nephrolithiasis. 7. Anxiety, depression. RECOMMENDATIONS AND DISCUSSION: Recommend to continue current management and continue symptomatic treatment. Otherwise, I would add a small dose of Norvasc to the current regimen. Further recommendations to follow. MMODL / IJN: [id number] /
[2025-03-08 05:14] LABS: EBV - EA (IgG) 11.8 U/mL (<9.0); EBV - VCA IgM 10.9 U/mL (<36.0)
[2025-03-08] MEDS: BUTALB/APAP/CAFF 50-325-40MG TAB PO PRN (09:21)
[2025-03-08 10:40] LABS: Anion Gap 9.70 mmol/L (4.00-12.00); BUN/Creat Ratio 22.33 Ratio (12.00-20.00); Blood Urea Nitrogen 20.1 mg/dL (9.0-27.0); Carbon Dioxide 25.3 mmol/L (21.6-31.8); Chloride 103 mmol/L (96-109); Glucose 141 mg/dL (70-110); Potassium 4.2 mmol/L (3.5-5.5); Sodium 138 mmol/L (135-145)
[2025-03-08 10:41] LABS: Calcium 9.7 mg/dL (8.7-10.3)
[2025-03-08 10:47] LABS: Basophils # (A) 0.01 X 10*3/uL (0.00-0.10); Basophils % (A) 0.1 %; Eosinophils # (A) 0 X 10*3/uL (0.04-0.35); Eosinophils % (A) 0 %; HCT 32.6 % (37.2-46.3); HGB 10.2 g/dL (12.0-15.0); Immature Grans, Automated 0.40 %; Immature Platelet Fraction 36.3 % (1.1-6.1); Lymphocytes # (A) 1.06 X 10*3/uL (0.90-5.00); Lymphocytes % (A) 7.7 %; MCH 29.6 pg (27.0-32.0); MCHC 31.3 g/dL (32.0-37.0); MCV 94.5 FL (80.0-97.0); Monocytes # (A) 0.58 X 10*3/uL (0.20-1.00); Monocytes % (A) 4.2 %; NRBC Per 100 WBC 0 X 10*3/uL (0.00-0.01); Neutrophils # (A) 12.06 X 10*3/uL (1.80-7.70); Neutrophils % (A) 87.6 %; Platelet Count 21 X 10*3/uL (140-440); RBC 3.45 X 10*6/uL (4.10-5.20); RDW 15.0 % (11.5-14.5); WBC 13.77 X 10*3/uL (4.50-10.00)
[2025-03-08] MEDS: IMMUNE GLOBULIN (GAMMAGARD) 30 GM in EMPTY BAG 1 BAG IV ONE ×2 (14:26→17:12)
--- NOTE | 2025-03-08 14:37 | P.PN ---
Subjective Progress Note Date: 03/08/25 Principal diagnosis: ITP, refractory In f/u today pt denies any s/s ITP, her petechiae on the lower extremities is healing, no bleeding reported Objective - Vital Signs Vital signs: Vital Signs Temp 97.9 F 03/08/25 07:56 Pulse 75 03/08/25 07:56 Resp 20 03/08/25 07:56 BP 113/64 03/08/25 07:56 Pulse Ox 96 03/08/25 07:56 FiO2 Intake & Output 03/07/25 03/08/25 03/08/25 18:59 06:59 18:59 Intake Total 4724.738 6698 Balance 9725.338 6865 Intake: Intake, IV Titration 298.258 112 Amount Immune Globulin ( 112 Gammagard) 30 gm In Empty Bag 1 bag @ Per Protocol IV .Q0M ONE Rx#: [id number] Immune Globulin ( 298.258 Gammagard) 30 gm In Empty Bag 1 bag @ Per Protocol IV .Q0M ONE Rx#: [id number] Oral 1080 Other 1200 Other: # Voids 5 1 - Constitutional General appearance: Present: cooperative, no acute distress, obese - EENT Eyes: Present: anicteric sclerae, EOMI ENT: Present: hearing grossly normal - Respiratory Details: resp unlabored at rest - Cardiovascular Details: skin warm, well perfused - Peripheral edema leg Peripheral Edema: bilateral: None - Integumentary Integumentary Comment(s): few scattered petechiae on legs - Neurologic Neurologic: Present: CNII-XII intact - Musculoskeletal Musculoskeletal: Present: strength equal bilaterally - Psychiatric Psychiatric: Present: A&O x's 3, appropriate affect, intact judgment & insight - Labs CBC & Chem 7: 03/08/25 05:21 03/08/25 05:21 Labs: Abnormal Lab Results - Last 24 Hours (Table) 03/07/25 03/08/25 03/08/25 Range/Units 06:34 05:21 05:21 WBC 13.77 H (4.50-10.00) X 10*3/uL RBC 3.45 L (4.10-5.20) X 10*6/uL Hgb 10.2 L (12.0-15.0) g/dL Hct 32.6 L (37.2-46.3) % MCHC 31.3 L (32.0-37.0) g/dL RDW 15.0 H (11.5-14.5) % Plt Count 21 A* (140-440) X 10*3/uL Immature Gran # 0.06 H (0.00-0.04) X 10*3/uL Neutrophils # 12.06 H (1.80-7.70) X 10*3/uL Eosinophils # 0 L (0.04-0.35) X 10*3/uL Immature Plt Fraction 36.3 H (1.1-6.1) % BUN/Creatinine Ratio 22.33 H (12.00-20.00) Ratio Glucose 141 H (70-110) mg/dL EBV Early Antigen IgG 11.8 H (<9.0) U/mL Assessment and Plan (1) Chronic ITP (idiopathic thrombocytopenia) Current Visit: Yes Status: Acute Priority: High Code(s): D69.3 - IMMUNE THROMBOCYTOPENIC PURPURA SNOMED Code(s): 47898789 Plan: ITP -Refractory to multiple treatments -Currently pt is on a combination of pulse dose steroids, promacta and she received IVIG yesterday. She tolerates well other then ALCANTAR from IVIG -Plt 21,000 today -Additional dose of IVIG ordered. Cont promacta 50mg QD while trying to get 75mg dose. Cont pulse dose steroids Pt has requested fiorcet for ALCANTAR-Rx will be sent to her pharmacy for 7 days-she will be getting her ALCANTAR meds from her PC in the future Pulse dose dex Rx will be sent to her pharm Pending Hpylori infection testing Pending B2G1, cardioloipin ab and lupus anticoagulant testing results. If pt has antiphospholipid syndrome, and those ab are underlying cause for refractory ITP, she will require different treatment for the same CBC in AM
[2025-03-08 14:44] LABS: Free Kappa Lt Chain Qnt, Serum 0.92 mg/dL (0.33-1.94); Free Lambda Lt Chain Qnt, Seru 0.92 mg/dL (0.57-2.63)
[2025-03-08] MEDS: ONDANSETRON 4 MG/2 ML VIAL IVP STA (15:46)
[2025-03-08] MEDS: diphenhydrAMINE 25 MG CAP PO STA (15:46)
[2025-03-08] MEDS: IMMUNE GLOBULIN (GAMMAGARD) 10 GM in EMPTY BAG 1 BAG IV ONE (19:57)
--- NOTE | 2025-03-09 05:28 | P.PN ---
Subjective Progress Note Date: 03/08/25 This is a pleasant 59-year-old female who was recently admitted with thrombocytopenia acute exacerbation also noted to have a platelet count of 3 although on admission was 1. Patient received IVIG with hematology/oncology following and platelets are slightly improved today recommending another treatment of IVIG with repeat labs in the a.m. and discussing possible discharge planning in the next 24 hours. Patient reports to feeling well and would like to go home but is agreeable to the treatment. Patient is afebrile with no reports of chest pain or shortness of breath. Patient reports has been maykel erating diet. Encourage increase activity as tolerated. Review of systems: Constitutional: No reports of fatigue, fever, or chills Cardiovascular: No reports of chest pain or palpitations Respiratory: No reports of shortness of breath or cough GI: No reports of nausea, no reports of vomiting, no diarrhea : No reports of dysuria or retention Neurovascular: No reports of generalized weakness All medications have been reviewed PHYSICAL EXAMINATION: GENERAL: The patient is alert and oriented x4, Well developed, well nourished. Obese HEENT: Pupils are round and equally reacting to light. EOMI. no scleral icterus. No conjunctival pallor. Normocephalic, atraumatic. No pharyngeal erythema. No thyromegaly. CARDIOVASCULAR: S1 and S2 muffled PULMONARY: diminished breath sounds bilaterally with no wheezing or rhonchi noted. ABDOMEN: soft. Nontender on exam. obese. non-distended, normoactive bowel sounds. No palpable organomegaly. MUSCULOSKELETAL: No joint swelling or deformity. EXTREMITIES: No cyanosis, clubbing, or pedal edema. NEUROLOGICAL: Gross neurological examination did not reveal any focal deficits. SKIN: No rashes. Assessment: Severe thrombocytopenia, possibly secondary to immune thrombocytopenia purpura acute exacerbation, maintained on IVIG Bleeding from the right thumb and spontaneous ecchymosis, improving Anemia History of chronic immune thrombocytopenic purpura Hypokalemia, improved History of nephrolithiasis Obesity with a BMI of 39.0 Anxiety/depression history GI prophylaxis DVT prophylaxis Full code Plan: Recommend to continue with current medications and management with hematology following. Platelets have improved and currently 21 today, hemoglobin is stable at 10.2 and there is no active bleeding noted. Other labs within normal limits. White count is mildly elevated at 13.77. Hematology recommending another dose of IVIG and repeat labs to discuss possible discharge planning Encouraged increase activity as tolerated with small frequent meals Will be monitored overnight and discussed with hematology regarding discharge planning possibly in the next 24 hours. Patient would like to go home. Due to multiple complex medical issues, overall prognosis is guarded The impression and plan of care has been dictated by Dinorah Kay, nurse practitioner as directed. Dr. Tacho MD I have performed a history and examination and MDM of this patient, discussed the same with the dictator, and agree with the dictator's assessment and plan as written ,documented as a scribe. Based on total visit time, I have performed more than 50% of the visit. Any additional findings or plans will be noted. Objective - Vital Signs Vital signs: Vital Signs Temp 98 F 03/08/25 14:39 Pulse 82 03/08/25 14:39 Resp 16 03/08/25 14:39 BP 135/76 03/08/25 14:39 Pulse Ox 97 03/08/25 14:39 FiO2 Intake & Output 03/07/25 03/08/25 03/08/25 18:59 06:59 18:59 Intake Total 9154.103 1656 142.445 Balance 2154.853 9144 142.445 Intake: Intake, IV Titration 298.258 112 142.445 Amount Immune Globulin ( 112 Gammagard) 30 gm In Empty Bag 1 bag @ Per Protocol IV .Q0M ONE Rx#: [id number] Immune Globulin ( 298.258 Gammagard) 30 gm In Empty Bag 1 bag @ Per Protocol IV .Q0M ONE Rx#: [id number] Immune Globulin ( 142.445 Gammagard) 30 gm In Empty Bag 1 bag @ Per Protocol IV .Q0M ONE Rx#: [id number] Oral 1080 Other 1200 Other: # Voids 5 1 - Labs CBC & Chem 7: 03/08/25 05:21 03/08/25 05:21 Labs: Abnormal Lab Results - Last 24 Hours (Table) 03/07/25 03/07/25 03/08/25 Range/Units 06:34 06:34 05:21 WBC 13.77 H (4.50-10.00) X 10*3/uL RBC 3.45 L (4.10-5.20) X 10*6/uL Hgb 10.2 L (12.0-15.0) g/dL Hct 32.6 L (37.2-46.3) % MCHC 31.3 L (32.0-37.0) g/dL RDW 15.0 H (11.5-14.5) % Plt Count 21 A* (140-440) X 10*3/uL Immature Gran # 0.06 H (0.00-0.04) X 10*3/uL Neutrophils # 12.06 H (1.80-7.70) X 10*3/uL Eosinophils # 0 L (0.04-0.35) X 10*3/uL Immature Plt Fraction 36.3 H (1.1-6.1) % BUN/Creatinine Ratio (12.00-20.00) Ratio Glucose (70-110) mg/dL EBV Early Antigen IgG 11.8 H (<9.0) U/mL VZV IgG Interpret Positive A (Negative) 03/08/25 Range/Units 05:21 WBC (4.50-10.00) X 10*3/uL RBC (4.10-5.20) X 10*6/uL Hgb (12.0-15.0) g/dL Hct (37.2-46.3) % MCHC (32.0-37.0) g/dL RDW (11.5-14.5) % Plt Count (140-440) X 10*3/uL Immature Gran # (0.00-0.04) X 10*3/uL Neutrophils # (1.80-7.70) X 10*3/uL Eosinophils # (0.04-0.35) X 10*3/uL Immature Plt Fraction (1.1-6.1) % BUN/Creatinine Ratio 22.33 H (12.00-20.00) Ratio Glucose 141 H (70-110) mg/dL EBV Early Antigen IgG (<9.0) U/mL VZV IgG Interpret (Negative)
[2025-03-09 05:34] LABS: Parvovirus B-19 IgG Antibodies 3.93 INDEX (<=0.90); Parvovirus B-19 IgM Antibodies 0.23 INDEX (<=0.90)
[2025-03-09 08:01] LABS: HCT 31.6 % (37.2-46.3); HGB 10.2 g/dL (12.0-15.0); Immature Platelet Fraction 27.4 % (1.1-6.1); MCH 29.8 pg (27.0-32.0); MCHC 32.3 g/dL (32.0-37.0); MCV 92.4 FL (80.0-97.0); NRBC Per 100 WBC 0 X 10*3/uL (0.00-0.01); Platelet Count 40 X 10*3/uL (140-440); RBC 3.42 X 10*6/uL (4.10-5.20); RDW 14.6 % (11.5-14.5); WBC 13.97 X 10*3/uL (4.50-10.00)
[2025-03-09 08:07] VITALS: PULSE 62
[2025-03-09 08:15] LABS: Carbon Dioxide 29 mmol/L (22-30); Chloride 103 mmol/L (98-107); Glucose 140 mg/dL (74-99); Potassium 3.8 mmol/L (3.5-5.1); Sodium 142 mmol/L (137-145)
[2025-03-09 08:16] LABS: African American GFR (CKD) 77 (>60 ml/min/1.73 sqM); Anion Gap 10 mmol/L; Blood Urea Nitrogen 33 mg/dL (7-17); Calcium 9.3 mg/dL (8.4-10.2); Non-African American GFR(CKD) 67 (>60 ml/min/1.73 sqM)
[2025-03-09 08:50] LABS: Basophils # (A) 0.01 X 10*3/uL (0.00-0.10); Basophils % (A) 0.1 %; Eosinophils # (A) 0 X 10*3/uL (0.04-0.35); Eosinophils % (A) 0 %; Immature Grans, Automated 0.80 %; Lymphocytes # (A) 1.24 X 10*3/uL (0.90-5.00); Lymphocytes % (A) 8.9 %; Monocytes # (A) 0.72 X 10*3/uL (0.20-1.00); Monocytes % (A) 5.2 %; Neutrophils # (A) 11.89 X 10*3/uL (1.80-7.70); Neutrophils % (A) 85.0 %
--- NOTE | 2025-03-09 11:00 | P.PN ---
Subjective Progress Note Date: 03/09/25 Principal diagnosis: ITP, refractory In f/u today pt cont to deny any s/s ITP, petechiae on the lower extremities is nearly resolved, no bleeding reported. She received her 2nd dose of IVIG yesterday, plt 40,000 today. Objective - Vital Signs Vital signs: Vital Signs Temp 98 F 03/09/25 08:06 Pulse 62 03/09/25 08:06 Resp 19 03/09/25 08:06 BP 114/72 03/09/25 08:06 Pulse Ox 96 03/09/25 08:06 FiO2 Intake & Output 03/08/25 03/09/25 03/09/25 18:59 06:59 18:59 Intake Total 319.031 523.414 Balance 319.031 523.414 Intake: Intake, IV Titration 319.031 523.414 Amount Immune Globulin ( 400 Gammagard) 10 gm In Empty Bag 1 bag @ Titrate IV . Q0M ONE Rx#:[id number] Immune Globulin ( 142.445 Gammagard) 30 gm In Empty Bag 1 bag @ Per Protocol IV .Q0M ONE Rx#: [id number] Immune Globulin ( 176.586 123.414 Gammagard) 30 gm In Empty Bag 1 bag @ Per Protocol IV .Q0M ONE Rx#: [id number] Other: # Voids 2 - Constitutional General appearance: Present: cooperative, no acute distress, obese - EENT Eyes: Present: anicteric sclerae, EOMI ENT: Present: hearing grossly normal - Respiratory Details: resp unlabored at rest - Cardiovascular Details: skin warm, well perfused - Peripheral edema leg Peripheral Edema: bilateral: None - Integumentary Integumentary: Present: normal - Neurologic Neurologic: Present: CNII-XII intact - Musculoskeletal Musculoskeletal: Present: strength equal bilaterally - Psychiatric Psychiatric: Present: A&O x's 3, appropriate affect, intact judgment & insight - Labs CBC & Chem 7: 03/09/25 05:23 03/09/25 05:23 Labs: Abnormal Lab Results - Last 24 Hours (Table) 03/07/25 03/07/25 03/09/25 Range/Units 06:34 06:34 05:23 WBC 13.97 H (4.50-10.00) X 10*3/uL RBC 3.42 L (4.10-5.20) X 10*6/uL Hgb 10.2 L (12.0-15.0) g/dL Hct 31.6 L (37.2-46.3) % RDW 14.6 H (11.5-14.5) % Plt Count 40 A* (140-440) X 10*3/uL MPV 14.1 H (9.5-12.2) FL Immature Gran # 0.11 H (0.00-0.04) X 10*3/uL Neutrophils # 11.89 H (1.80-7.70) X 10*3/uL Eosinophils # 0 L (0.04-0.35) X 10*3/uL Immature Plt Fraction 27.4 H (1.1-6.1) % BUN (7-17) mg/dL Glucose (74-99) mg/dL Parvovirus B19 IgG Ab 3.93 H (<=0.90) INDEX VZV IgG Interpret Positive A (Negative) 03/09/25 Range/Units 05:23 WBC (4.50-10.00) X 10*3/uL RBC (4.10-5.20) X 10*6/uL Hgb (12.0-15.0) g/dL Hct (37.2-46.3) % RDW (11.5-14.5) % Plt Count (140-440) X 10*3/uL MPV (9.5-12.2) FL Immature Gran # (0.00-0.04) X 10*3/uL Neutrophils # (1.80-7.70) X 10*3/uL Eosinophils # (0.04-0.35) X 10*3/uL Immature Plt Fraction (1.1-6.1) % BUN 33 H (7-17) mg/dL Glucose 140 H (74-99) mg/dL Parvovirus B19 IgG Ab (<=0.90) INDEX VZV IgG Interpret (Negative) Assessment and Plan (1) Chronic ITP (idiopathic thrombocytopenia) Current Visit: Yes Status: Acute Priority: High Code(s): D69.3 - IMMUNE THROMBOCYTOPENIC PURPURA SNOMED Code(s): 88023138 (2) Neutrophilic leukocytosis Current Visit: Yes Status: Acute Priority: Low Code(s): D72.828 - OTHER ELEVATED WHITE BLOOD CELL COUNT SNOMED Code(s): 820356082 Plan: ITP -Refractory to multiple treatments -Currently pt is on a combination of pulse dose steroids, promacta 50mg QD. She received IVIG with an increase in plt to 21,000. She received IVIG yesterday, plt 40,000 today. Final day of pulse dose dex was this AM. -Cont pulse dose dex-Rx sent to pt pharmacy -Promacta dose increase-pending insurance approval -Dr. Schumacher discussed case with Rheumatology. [place] that pt clinically meets several criteria for antiphospholipid syndrome. Possible treatment with immunosuppressant agents will be considered, pending pt response to higher dose of promacta. Pt has requested fiorcet for ALCANTAR-Rx will be sent to her pharmacy for 7 days-she w ill be getting her ALCANTAR meds from her PCP in the future Pulse dose dex Rx sent to her pharm Pending Hpylori infection testing Pt is ok for DC from Hematology standpoint Discussed above with pt. She verbalizes understanding and agrees with the plan of care attests: I have seen and examined pt, performed H&P, developed iimpression and plan of care. Discussed with dictator. Agree with documentation, dictated as a scribe
[2025-03-09 13:22] VITALS: BP 118/74; RESP 16; TEMP 98.5
[2025-03-09 14:30] LABS: Albumin 4.05 g/dL (3.80-4.90); Gamma Globulin 0.87 g/dL (0.70-1.50)
--- NOTE | 2025-03-11 01:20 | P.DS ---
Providers Date of admission: 03/05/25 17:06 Expected date of discharge: 03/09/25 Attending physician: Chelo Titus Consults: 03/05/25 17:04 Consult Physician Routine Consulting Provider: Yulissa Duran Consult Reason/Comments: thrombocytopenia Do you want consulting provider notified?: Yes Primary care physician: Alberta King MD Hospital Course: Final diagnosis Severe thrombocytopenia, possibly secondary to immune thrombocytopenia purpura acute exacerbation, maintained on IVIG x 2 infusions this admission Bleeding from the right thumb and spontaneous ecchymosis, improved Anemia History of chronic immune thrombocytopenic purpura Hypokalemia, improved History of nephrolithiasis Obesity with a BMI of 39.0 Anxiety/depression history GI prophylaxis DVT prophylaxis Full code Discharge disposition Patient is being discharged in a stable condition with guarded prognosis to home. Patient will follow-up with Dr. King in the outpatient setting upon discharge. Patient is to continue with current medications and outpatient follow-up with hematology as well as rheumatology as scheduled. Total time taken is greater than 35 minutes. Hospital course This is a 59-year-old female who was recently admitted with significant thrombocytopenia being closely monitored with hematology following. Patient is status post 2 infusions of IVIG showing improvements of platelets and they are currently 40 today. No active bleeding noted and patient has been cleared by hematology recommending close outpatient follow-up. Please refer to consultation notes for further HPI. Patient reports to feeling improved and would like to go home. Recommend repeat labs in the next 2 to 3 days outpatient. Currently no reports of chest pain, shortness of breath, or palpitations. Patient is afebrile. No reports of nausea or vomiting and patient is tolerating diet. Patient will be discharged home today. Guarded prognosis Physical exam: Gen: This is a 59-year-old female who is awake, alert and oriented x 3, well- developed, elderly appearing, obese HEENT: Head is atraumatic, normocephalic. Pupils equal, round. Sclerae is anicteric. NECK: Supple. No JVD. No lymphadenopathy. No thyromegaly. LUNGS: Clear to auscultation. No wheezes or rhonchi. No intercostal retractions. HEART: Regular rate and rhythm. No murmur. ABDOMEN: Soft. Obese. Bowel sounds are present. No masses. No tenderness. EXTREMITIES: No pedal edema. No calf tenderness. NEUROLOGICAL: Patient is awake, alert and oriented x3. Cranial nerves 2 through 12 are grossly intact. Please refer to medication reconciliation sheet for a list of medications. The impression and plan of care has been dictated by Dinorah Kay, Nurse Practitioner as directed. Dr. Tacho MD I have performed a history and examination and MDM of this patient, discussed the same with the dictator, and agree with the dictator's assessment and plan as written ,documented as a scribe. Based on total visit time, I have performed more than 50% of the visit. Patient Condition at Discharge: Fair Plan - Discharge Summary Discharge Rx Participant: No New Discharge Prescriptions: New amLODIPine [Norvasc] 5 mg PO DAILY #30 tab Acetaminophen Tab [Tylenol] 325 mg PO Q6HR PRN tab PRN Reason: Fever And/ Or Pain valACYclovir HCL [Valtrex] 1,000 mg PO BID 7 Days #14 tab Continue oxyCODONE-APAP 10-325MG [Percocet 10-325 mg] 1 tab PO Q8H PRN PRN Reason: Pain hydroCHLOROthiazide [Hydrodiuril] 25 mg PO DAILY allopurinoL [Zyloprim] 300 mg PO DAILY Potassium Citrate [Urocit-K] 20 meq PO BID Rizatriptan Benzoate 10 mg PO DAILY PRN PRN Reason: Migraine Headache Gabapentin [Neurontin] 300 mg PO BID ALPRAZolam [Xanax] 0.5 mg PO Q6H PRN PRN Reason: Anxiety Rimegepant Sulfate [Nurtec Odt] 75 mg PO Q48H PRN PRN Reason: Migraine Headache Ondansetron Odt [Zofran ODT] 8 mg PO Q8HR PRN PRN Reason: Nausea Tirzepatide [Zepbound] 10 mg SQ DIRECTED Eltrombopag Olamine [Promacta] 50 mg PO DAILY buPROPion XL [Wellbutrin XL] 300 mg PO DAILY Tamsulosin [Flomax] 0.4 mg PO DAILY Potassium Chloride ER [K-Dur 20] 40 meq PO DAILY Bumetanide [BUMEX] 2 mg PO BID Pantoprazole [Protonix] 40 mg PO DAILY Oxybutynin Chloride [oxyBUTYnin chloride ER] 10 mg PO DAILY Baclofen 10 - 20 mg PO TID PRN PRN Reason: Muscle Spasm Nystatin 100,000 Unit/gm Powd [Mycostatin Powder] 1 applic TOPICAL BID PRN PRN Reason: Itching Famotidine 40 mg PO DAILY Tirzepatide [Zepbound] 7.5 mg SQ Q7D dexAMETHasone [Decadron] 40 mg PO DAILY PRN PRN Reason: treatment of ITP Discontinued Aspirin EC [Ecotrin Low Dose] 81 mg PO DAILY Discharge Medication List ALPRAZolam [Xanax] 0.5 mg PO Q6H PRN 01/20/25 [History] Baclofen 10 - 20 mg PO TID PRN 01/20/25 [History] Bumetanide [BUMEX] 2 mg PO BID 01/20/25 [History] Gabapentin [Neurontin] 300 mg PO BID 01/20/25 [History] Oxybutynin Chloride [oxyBUTYnin chloride ER] 10 mg PO DAILY 01/20/25 [History] Pantoprazole [Protonix] 40 mg PO DAILY 01/20/25 [History] Potassium Chloride ER [K-Dur 20] 40 meq PO DAILY 01/20/25 [History] Potassium Citrate [Urocit-K] 20 meq PO BID 01/20/25 [History] Rimegepant Sulfate [Nurtec Odt] 75 mg PO Q48H PRN 01/20/25 [History] Rizatriptan Benzoate 10 mg PO DAILY PRN 01/20/25 [History] Tamsulosin [Flomax] 0.4 mg PO DAILY 01/20/25 [History] allopurinoL [Zyloprim] 300 mg PO DAILY 01/20/25 [History] buPROPion XL [Wellbutrin XL] 300 mg PO DAILY 01/20/25 [History] hydroCHLOROthiazide [Hydrodiuril] 25 mg PO DAILY 01/20/25 [History] oxyCODONE-APAP 10-325MG [Percocet 10-325 mg] 1 tab PO Q8H PRN 01/20/25 [History] Eltrombopag Olamine [Promacta] 50 mg PO DAILY 03/05/25 [History] Famotidine 40 mg PO DAILY 03/05/25 [History] Nystatin 100,000 Unit/gm Powd [Mycostatin Powder] 1 applic TOPICAL BID PRN 03/05/25 [History] Ondansetron Odt [Zofran ODT] 8 mg PO Q8HR PRN 03/05/25 [History] Tirzepatide [Zepbound] 7.5 mg SQ Q7D 03/05/25 [History] Tirzepatide [Zepbound] 10 mg SQ DIRECTED 03/05/25 [History] dexAMETHasone [Decadron] 40 mg PO DAILY PRN 03/05/25 [History] Acetaminophen Tab [Tylenol] 325 mg PO Q6HR PRN tab 03/09/25 [Rx] amLODIPine [Norvasc] 5 mg PO DAILY #30 tab 03/09/25 [Rx] valACYclovir HCL [Valtrex] 1,000 mg PO BID 7 Days #14 tab 03/09/25 [Rx] Follow up Appointment(s)/Referral(s): Yulissa Duran MD [STAFF PHYSICIAN] - 03/31/25 2:00 pm Nonstaff,Physician [REFERRING] - 1-2 days Patient Instructions/Handouts: Amlodipine (By mouth), Valacyclovir (By mouth), Immune Thrombocytopenia (DC) Activity/Diet/Wound Care/Special Instructions: Activity limited until follow-up Follow-up with primary care provider Follow-up with curtain cutter hand Follow-up with hematology outpatient Continue taking medications as prescribed Discharge Disposition: HOME SELF-CARE
== END 2025-03-09 15:30 | disposition home or self-care (01) | DRG 813 ==
LOC: EC 13:59 → 3SCARD 17:06 → 5NMEDONC 03-06 15:26
PROVIDERS: ADMIT Hospitalist; ATTEND Hospitalist
PROC: 30233R1 Transfusion of Nonautologous Platelets into Peripheral Vein, Percutaneous Approach (ICD-10-PCS; principal; 2025-03-06)
DX: D69.3 Immune thrombocytopenic purpura (principal); D68.61 Antiphospholipid syndrome; R58 Hemorrhage, not elsewhere classified; F32.A Depression, unspecified; E66.9 Obesity, unspecified; D64.9 Anemia, unspecified; D69.59 Other secondary thrombocytopenia; E87.6 Hypokalemia; F41.9 Anxiety disorder, unspecified; D72.828 Other elevated white blood cell count; G43.909 Migraine, unspecified, not intractable, without status migrainosus; Z68.39 Body mass index [BMI] 39.0-39.9, adult; Z79.82 Long term (current) use of aspirin; Z79.899 Other long term (current) drug therapy; Z82.49 Family history of ischemic heart disease and other diseases of the circulatory system; Z87.442 Personal history of urinary calculi; Z90.81 Acquired absence of spleen; Z88.0 Allergy status to penicillin; Z88.1 Allergy status to other antibiotic agents; Z91.018 Allergy to other foods
CPT/HCPCS: 36415; 36430; 71045; 71250; 74176; 80048; 80053; 80074; 81003; 82607; 82728; 82746; 83010; 83013; 83540; 83550; 83615; 83883; 84165; 84439; 84443; 84481; 85025; 85610; 85730; 86663; 86665; 86747; 86787; 86850; 86860; 86870; 86880; 86885; 86900; 86901; 86905; 86906; 99291